=== PATIENT | male | born 1960 | race Caucasian/White ===

== ENCOUNTER 2016-09-16 10:20 | Emergency (ER) | payer OTHER ==
--- NOTE | 2016-09-16 10:45 | ERPHSYRPT ---
- History of Present Illness Time Seen by Provider: 09/16/16 10:41 Source: patient Exam Limitations: no limitations Patient Subjective Stated Complaint: co left knee pain for 2 days after bending down, Triage Nursing Assessment: pt has swelling to left knee, no redenss, limps when tries to bear wt Physician History: This is a 56-year-old white male he arrives with complaint of pain in his left knee worse with movement and straightening the knee symptoms since yesterday. Patient states he bent over and felt pain in the left knee he is having swelling and pain in the left knee. Past medical history is positive for atherosclerotic coronary artery disease. Past surgical history includes coronary artery bypass. Social history positive tobacco use Method of Injury: other (bent over and felt a pop in the knee) Occurred: yesterday Quality: constant Severity of Pain-Max: moderate Severity of Pain-Current: moderate Lower Extremities Pain: knee: left Modifying Factors: Improves With: movement Associated Symptoms: popping sensation, other (pain with movement left knee) Allergies/Adverse Reactions: No Known Drug Allergies Allergy (Unverified 09/16/16 10:31) Home Medications: Aspirin EC 325 mg [Ecotrin 325 MG] 325 mg DAILY 09/16/16 [History] Clopidogrel Bisulfate 75 mg [PLAVIX 75 MG Tablet] 75 mg DAILY 09/16/16 [ History] Simvastatin 40 mg [Zocor 40 mg] 40 mg DAILY 09/16/16 [History] Hx Influenza Vaccination/Date Given: No Hx Pneumococcal Vaccination/Date Given: No Immunizations Up to Date: Yes - Review of Systems Constitutional: No Fever, No Chills Eyes: No Symptoms Ears, Nose, & Throat: No Symptoms Respiratory: No Cough, No Dyspnea Cardiac: No Chest Pain, No Edema, No Syncope Abdominal/Gastrointestinal: No Abdominal Pain, No Nausea, No Vomiting, No Diarrhea Genitourinary Symptoms: No Dysuria Musculoskeletal: Other (pain left knee) Skin: No Rash Neurological: No Dizziness, No Focal Weakness, No Sensory Changes Psychological: No Symptoms Endocrine: No Symptoms All Other Systems: Reviewed and Negative - Past Medical History Pertinent Past Medical History: Yes Cardiac History: Coronary Artery Disease, High Cholesterol, Hypertension - Past Surgical History Past Surgical History: Yes Cardiac: CABG Other Surgical History: 2013n bypass - Social History Smoking Status: Current every day smoker Exposure to second hand smoke: Yes Drug Use: none Patient Lives Alone: No - Nursing Vital Signs Nursing Vital Signs: Initial Vital Signs Temperature 97.4 F Temperature Source Oral Pulse Rate 77 Respiratory Rate 16 Blood Pressure 152/102 Pain Intensity 9 - Physical Exam General Appearance: mild distress Eyes, Ears, Nose, Throat Exam: moist mucous membranes Neck Exam: non-tender, supple Cardiovascular/Respiratory Exam: chest non-tender, normal breath sounds, regular rate/rhythm, no respiratory distress Gastrointestinal/Abdominal Exam: non-tender, guarding Back Exam: normal inspection, No vertebral tenderness Hips Exam: bilateral: non-tender, normal inspection, normal range of motion, no evidence of injury Legs Exam: bilateral leg: non-tender, normal inspection, normal range of motion , no evidence of injury Knees Exam: right knee: non-tender, normal inspection, normal range of motion, no evidence of injury, left knee: bone tenderness (tenderness anterior left knee with palpation), other (decreased range of motion left kneesecondary to pain, mild edema left knee anteriorly) Ankle Exam: bilateral ankle: non-tender, normal inspection, normal range of motion, no evidence of injury Foot Exam: bilateral foot: non-tender, normal inspection, normal range of motion , no evidence of injury DTR - Lower Extremities Exam: ankle (R): 2+, ankle (L): 2+ Neuro/Tendon Exam: normal sensation (Stent.), normal motor functions Mental Status Exam: alert, oriented x 3, cooperative Skin Exam: normal color, warm, dry SpO2 Interpretation: normal (96%) SpO2: 96 Oxygen Delivery: Room Air - Course Nursing assessment & vital signs reviewed: Yes - Radiology Exams Left Knee X-ray Interpretation: Discussed w/ radiologist, No Fracture, No Subluxation, Other (x-ray left knee: Small nonspecific suprapatellar effusion, faint vascular calcification, multiple medial vascular clips. Patellofemoral articulation symmetric. No other bony, articular, or soft tissue abnormalities. ) Ordered Tests: Active Orders 24 hr Category Date Time Status Benigno Bandage Application -[facility] STAT Care 09/16/16 11:13 Active Immobilizer STAT Care 09/16/16 11:13 Active KNEE (MIN 4 VIEW) Stat Exams 09/16/16 10:40 Completed - Progress Progress: improved Progress Note: 09/16/16 11:17 This is a 56-year-old white male with pain in his left knee since yesterday he states he felt a pop when bending over he has pain anterior to the knee has mild edema anterior knee. X-ray shows a small effusion superior to the patella no obvious bony injuries are noted. Will have nurse place Benigno wrap and a left knee immobilizer. Will write for [place]. Patient is ice and elevate his left knee he is to follow-up with Dr. Fraga his family doctor. He is return for acute distress or for severe symptoms. - Departure Time of Disposition: 11:14 Departure Disposition: Home Clinical Impression: Effusion, left knee Left knee sprain Qualifiers: Encounter type: initial encounter Involved ligament of knee: unspecified ligament Qualified Code(s): S83.92XA - Sprain of unspecified site of left knee, initial encounter Condition: Fair Critical Care Time: No Referrals: VICTORINO FRAGA MD [Primary Care Provider] - Instructions: Knee Sprain Additional Instructions: Return home. Ice and elevate left knee 24-48 hours. Use immobilizer 48-72 hours longer if pain persists. Follow-up with your family doctor. [place] 5/325 #12 one orally every 4-6 hours as needed for pain. Return for acute distress or for severe symptoms. Prescriptions: Hydrocodone Bit/Acetaminophen [[place] 5/325Mg] 1 tab PO Q4-6HPRN PRN #12 tablet PRN Reason: Pain
--- NOTE | 2016-09-16 11:10 | XRAY ---
Indication: Patellar pain following bending knee. Comparison: None 4 views of the left knee demonstrates small nonspecific suprapatellar effusion, faint vascular calcifications, and multiple medial vascular clips. Patellofemoral articulation symmetric. No other bony, articular, or soft tissue abnormalities.
[2016-09-16 11:32] VITALS: BP 106/62; PULSE 76; O2SAT 95
== END 2016-09-16 11:30 | disposition home or self-care (01) ==
LOC: ED 10:20
DX: S83.92XA Sprain of unspecified site of left knee, initial encounter (principal); M25.462 Effusion, left knee; X50.0XXA Overexertion from strenuous movement or load, initial encounter
CPT/HCPCS: 73564; 99283; L1830

== ENCOUNTER 2018-04-06 01:52 | Emergency (ER) | payer OTHER ==
[2018-04-06] MEDS ORDERED: MORPHINE SULFATE 2 MG INJ ONE (02:13)
--- NOTE | 2018-04-06 02:14 | ERPHSYRPT ---
- History of Present Illness Time Seen by Provider: 04/06/18 02:05 Historian: patient, family Exam Limitations: no limitations Patient Subjective Stated Complaint: chest pain Triage Nursing Assessment: Pt c/o of pain in the left chest that radiates to his left shoulder and down his left arm, and back, hx of [place], rates pain 10/10, BP 172/109, c/o of SOB, pulses normal, appears to be uncomfortable Physician History: 57 y/o white male with sig cardiovascular dz including 3 MIs, 5 to 6 cardiac vessel stents placed by Dr. Howard of [place] and most recently a 2 vessel cabg [address] Bowen Dean of [place], presents with chest pain that is left side with radiation into back and left upper ext. pt states similar to other MIs in past. pt did not take any asa or ntg. pt continues to smoke cigarettes Timing/Duration: hour(s) (one) Activities at Onset: none Quality: aching, pressure Location: other (left chest) Chest Pain Radiation: arm (left), back Severity of Pain-Max: moderate Severity of Pain-Current: moderate Modifying Factors: Improves With: nitroglycerin, aspirin (improving) Associated Symptoms: denies symptoms, No nausea, No vomiting, No heartburn, No abdominal pain, No shortness of breath, No hurts to breathe, No diaphoresis Prior Chest Pain/Cardiac Workup: cardiac cath, heart attack Nitro Today/Relief: no nitro taken today, 0.4 mg x 2, provided by ED, mild relief Aspirin Treatment Today: 325 mg x 1, provided by ED Allergies/Adverse Reactions: No Known Drug Allergies Allergy (Verified 04/06/18 02:02) Home Medications: Aspirin EC 325 mg [Ecotrin 325 MG] 325 mg PO DAILY 09/16/16 [History] Clopidogrel Bisulfate 75 mg [PLAVIX 75 MG Tablet] 75 mg PO DAILY 09/16/16 [History] Simvastatin 40 mg [Zocor 40 mg] 40 mg PO DAILY 09/16/16 [History] Hx Influenza Vaccination/Date Given: No Hx Pneumococcal Vaccination/Date Given: No - Review of Systems Constitutional: No Symptoms, No Fever, No Chills Eyes: No Symptoms, No Discharge, No Eye Pain Ears, Nose, & Throat: No Symptoms, No Ear Pain Respiratory: No Symptoms, No Cough, No Dyspnea on Exertion (TUCKER), No Stridor, No Wheezing Cardiac: Chest Pain, No Palpitations, No Syncope Abdominal/Gastrointestinal: No Symptoms, No Abdominal Pain, No Nausea, No Vomiting, No Diarrhea Genitourinary Symptoms: No Symptoms, No Dysuria, No Frequency, No Hematuria Musculoskeletal: No Symptoms Skin: No Symptoms Neurological: No Symptoms, No Dizziness, No Headache Psychological: No Symptoms, No Alcohol Abuse, No Drug Abuse, No Anxiety Endocrine: No Symptoms - Past Medical History Pertinent Past Medical History: Yes Neurological History: No Pertinent History ENT History: No Pertinent History Cardiac History: Coronary Artery Disease, High Cholesterol, Hypertension, Myocardial Infarction ([place]) Respiratory History: No Pertinent History Endocrine Medical History: Diabetes Type II Musculoskeletal History: No Pertinent History GI Medical History: No Pertinent History History: No Pertinent History Psycho-Social History: No Pertinent History Male Reproductive Disorders: No Pertinent History - Past Surgical History Past Surgical History: Yes Neuro Surgical History: No Pertinent History Cardiac: CABG, Cardiac Catheterization, Cardiac Stent Respiratory: No Pertinent History Gastrointestinal: No Pertinent History Genitourinary: No Pertinent History Musculoskeletal: No Pertinent History Other Surgical History: 2013n bypass - Social History Smoking Status: Current every day smoker How long have you smoked: 42 years Exposure to second hand smoke: Yes Drug Use: none Patient Lives Alone: No - Nursing Vital Signs Nursing Vital Signs: Initial Vital Signs Pulse Rate 80 04/06/18 01:54 Blood Pressure 172/109 04/06/18 01:54 O2 Sat by Pulse Oximetry 96 04/06/18 01:54 Pain Scale Pain Intensity 0 - Physical Exam General Appearance: mild distress, alert, anxiety Eye Exam: PERRL/EOMI, eyes nml inspection Ears, Nose, Throat Exam: normal ENT inspection Neck Exam: normal inspection, non-tender, supple, full range of motion Respiratory Exam: normal breath sounds, chest tenderness, lungs clear, airway intact, No respiratory distress, No diminished breath sounds, No accessory muscle use, No wheezing, No stridor Cardiovascular Exam: regular rate/rhythm, normal heart sounds, normal peripheral pulses Gastrointestinal/Abdomen Exam: soft, normal bowel sounds, No tenderness, No distention, No mass, No guarding Rectal Exam: not done Back Exam: normal inspection, normal range of motion, No CVA tenderness, No vertebral tenderness Extremity Exam: normal inspection, normal range of motion, pelvis stable Neurologic Exam: alert, oriented x 3, cooperative, anatomic pathology manager II-XII nml as tested, normal mood/affect, nml cerebellar function, nml station & gait, sensation nml Skin Exam: normal color, warm, dry Lymphatic Exam: No adenopathy SpO2 Interpretation: normal SpO2: 96 Oxygen Delivery: Room Air - Course Nursing assessment & vital signs reviewed: Yes EKG Interpreted by Me: RATE (80), Sinus Rhythm, NORMAL INTERVALS, NORMAL QRS, Non-specific ST Changes Ordered Tests: Active Orders 24 hr Category Date Time Status Clinical Recruiter STAT Care 04/06/18 02:15 Active EKG-ER Only STAT Care 04/06/18 02:14 Active IV Insertion STAT Care 04/06/18 02:14 Active Oxygen-ED Only NASAL CANNULA 2 lpm Care 04/06/18 02:14 Active Pulse Oximetry (ED) STAT Care 04/06/18 02:14 Active Re-Check Vital Signs STAT Care 04/06/18 02:14 Active CHEST 1 VIEW (PORTABLE) Stat Exams 04/06/18 02:15 Taken CBC W DIFF Stat Lab 04/06/18 02:15 Completed CMP Stat Lab 04/06/18 02:15 Completed Manual Differential NC Stat Lab 04/06/18 02:15 Completed NT PRO BNP Stat Lab 04/06/18 02:15 Completed PROTIME WITH INR Stat Lab 04/06/18 02:15 Received TROPONIN Q3H Lab 04/06/18 02:15 Received TROPONIN Q3H Lab 04/06/18 05:15 Ordered TROPONIN Q3H Lab 04/06/18 08:15 Ordered TROPONIN Q3H Lab 04/06/18 11:15 Ordered TROPONIN Q3H Lab 04/06/18 14:15 Ordered Medication Summary Generic Name Dose Route Start Last Admin Trade Name Freq PRN Reason Stop Dose Admin Enoxaparin Sodium 100 mg 04/06/18 03:17 Enoxaparin Sodium SQ 04/06/18 03:18 STAT STA Sodium Chloride 1,000 mls @ 50 mls/hr 04/06/18 02:15 04/06/18 02:29 Sodium Chloride 0.9% 1000 Ml IV 05/06/18 02:14 50 mls/hr .Q20H VERONICA Administration Discontinued Medications Generic Name Dose Route Start Last Admin Trade Name Freq PRN Reason Stop Dose Admin Aspirin 324 mg 04/06/18 02:14 04/06/18 02:25 Baby Aspirin 81 Mg Chew PO 04/06/18 02:15 324 mg STAT ONE Administration Morphine Sulfate Confirm 04/06/18 02:13 Morphine Sulfate 2 Mg Inj Administered 04/06/18 02:14 Dose 2 mg .ROUTE .STK-MED ONE Morphine Sulfate 2 mg 04/06/18 02:14 04/06/18 02:25 Morphine Sulfate 2 Mg Inj IV 04/06/18 02:15 2 mg STAT ONE Administration Nitroglycerin 0.4 mg 04/06/18 02:26 04/06/18 02:30 Nitrostat 0.4 Mg (Ed) SL 04/06/18 02:27 0.4 mg STAT ONE Administration Nitroglycerin 0.4 mg 04/06/18 02:27 04/06/18 02:30 Nitrostat 0.4 Mg (Ed) SL 04/06/18 02:28 0.4 mg STAT ONE Administration Lab/Rad Data: Laboratory Result Diagrams 04/06/18 02:15 04/06/18 02:15 Laboratory Results 04/06/18 04/06/18 Range/Units 02:15 02:15 WBC 9.0 (4.0-10.5) K/mm3 RBC 4.87 (4.1-5.6) M/mm3 Hgb 14.6 (12.5-18.0) gm/dl Hct 43.2 (42-50) % MCV 88.7 (78-100) fl MCH 30.0 (26-32) pg MCHC 33.8 (32-36) g/dl RDW 13.9 (11.5-14.0) % Plt Count 327 (150-450) K/mm3 MPV 9.9 H (6-9.5) fl Absolute Granulocytes 5.47 (1.4-6.9) Sodium 141 (137-145) mmol/L Potassium 4.0 (3.5-5.1) mmol/L Chloride 105 (98-107) mmol/L Carbon Dioxide 22 (22-30) mmol/L Anion Gap 17.2 H (5-15) MEQ/L BUN 17 (9-20) mg/dL Creatinine 0.88 (0.66-1.25) mg/dL Estimated GFR > 60.0 ML/MIN Glucose 152 H (74-106) mg/dL Calcium 9.5 (8.4-10.2) mg/dL Total Bilirubin 0.20 (0.2-1.3) mg/dL AST 20 (17-59) U/L ALT 22 (0-50) U/L Alkaline Phosphatase 65 (38-126) U/L NT-Pro-B Natriuret Pep 169 (0-900) pg/mL Serum Total Protein 7.7 (6.3-8.2) g/dL Albumin 4.4 (3.5-5.0) g/dL - Progress Progress: improved, re-examined Air Movement: good Progress Note: 04/06/18 03:19 0305 pt stated chest pain resolved. pressure remains but improved. [address] 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 anna howard. hx, condition, labs, ekg and xray results discussed with him. he accepts pt for transfer to [facility]. he wants pt to receive only a single dose of lovenox. 0320 reviewed labs, ekg and xray findings with pt. discussed with pt and sig other plan of tranfer to [facility]. they agree with plan. Blood Culture(s) Obtained: No Antibiotics given: No Discussed with Dr.: Other (Zully-toll collector supervisor) Will see patient in: hospital (full admit) Counseled pt/family regarding: lab results, diagnosis, need for follow-up, rad results - Departure Time of Disposition: 03:24 Departure Disposition: Transfer Clinical Impression: Non-ST elevated myocardial infarction (non-STEMI) Condition: Stable Critical Care Time: Yes Critical Care Time(excluding separately billable procedures): 30-74 minutes Referrals: VICTORINO FRAGA MD [Primary Care Provider] -
[2018-04-06] MEDS: MORPHINE SULFATE 2 MG INJ IV ONE (02:25)
[2018-04-06] MEDS: BABY ASPIRIN 81 MG CHEW PO ONE (02:25)
[2018-04-06] MEDS ORDERED: Sodium Chloride 0.9% 1000 ML 1,000 ML ONE (02:26)
[2018-04-06] MEDS: Sodium Chloride 0.9% 1000 ML 1,000 ML IV SCH (02:29)
[2018-04-06] MEDS: Nitrostat 0.4 MG (ED) SL ONE ×2 (02:30)
[2018-04-06 02:48] LABS: Granulocyte Absolute (ANC) 5.47 (1.4-6.9); Hematocrit 43.2 % (42-50); Hemoglobin 14.6 gm/dl (12.5-18.0); Mean Cell Volume 88.7 fl (78-100); Mean Corpuscular Hgb Concent. 33.8 g/dl (32-36); Mean Platelet Volume 9.9 fl (6-9.5); Platelet Count 327 K/mm3 (150-450); Red Blood Count 4.87 M/mm3 (4.1-5.6); Red Cell Distribution Width 13.9 % (11.5-14.0)
[2018-04-06 02:56] LABS: ALBUMIN 4.4 g/dL (3.5-5.0); ALKALINE PHOSPHATASE 65 U/L (38-126); ANION GAP 17.2 MEQ/L (5-15); BLOOD UREA NITROGEN 17 mg/dL (9-20); CHLORIDE 105 mmol/L (98-107); Calcium 9.5 mg/dL (8.4-10.2); Carbon Dioxide 22 mmol/L (22-30); Creatinine 1 0.88 mg/dL (0.66-1.25); Glucose 152 mg/dL (74-106); NT PRO BNP 169 pg/mL (0-900); SGOT/AST 20 U/L (17-59); SGPT/ALT 22 U/L (0-50); SODIUM 141 mmol/L (137-145); Total Protein 7.7 g/dL (6.3-8.2)
[2018-04-06] MEDS ORDERED: ENOXAPARIN SODIUM SQ ONE (03:18)
[2018-04-06 03:20] VITALS: PULSE 78
[2018-04-06] MEDS: ENOXAPARIN SODIUM SQ STA (03:21)
[2018-04-06 04:13] LABS: INR 0.92 (0.8-3.0)
[2018-04-06 04:29] VITALS: BP 114/74; O2SAT 98
[2018-04-06 04:41] LABS: ATYPICAL LYMPHS 2 %; Eosinophil 8 % (0.00-3.0); Lymphocytes 28 % (24-44); Monocyte 6 % (0.0-12.0); Neutrophils 56 % (36.-66.); Total Cells Counted 100
[2018-04-06 04:42] LABS: Platelet Estimate NORMAL (NORMAL)
[2018-04-06] MEDS ORDERED: Nitrostat 0.4 MG (ED) SL ONE (05:55)
[2018-04-06] MEDS ORDERED: BABY ASPIRIN 81 MG CHEW ONE (05:55)
--- NOTE | 2018-04-06 08:55 | XRAY ---
Indication: Chest pain. Comparison: August 06, 2011. Portable apical lordotic chest less inflated without focal infiltrate, consolidation, or large effusion. Heart and mediastinal structures within normal limits. Bony thorax intact with new sternotomy wires. Impression: Nonacute chest.
== END 2018-04-06 04:27 | disposition short-term general hospital (02) ==
LOC: ED 01:52
DX: I21.4 Non-ST elevation (NSTEMI) myocardial infarction (principal); I25.2 Old myocardial infarction; Z95.1 Presence of aortocoronary bypass graft; Z79.82 Long term (current) use of aspirin; Z79.899 Other long term (current) drug therapy
CPT/HCPCS: 36000; 36415; 71045; 80053; 83880; 84484; 85025; 85610; 93005; 93041; 96360; 96361; 96372; 96374; 99285; J1650; J2270; A9270-GY

== ENCOUNTER 2020-08-27 21:24 | Emergency (ER) | payer OTHER ==
--- NOTE | 2020-08-27 21:33 | ERPHSYRPT ---
- History of Present Illness Time Seen by Provider: 08/27/20 21:31 Historian: patient Exam Limitations: no limitations Patient Subjective Stated Complaint: BP up, causing chest pressure. Physician History: His blood pressure has been elevated for a few days, causing some chest pressure. He is compliant with his medication. He has not had this problem for a while. He does have a hx of CAD. He did have a cardiac cath and stent placed about 2 years ago. He sees Dr. Murcia in [place]. Timing/Duration: yesterday Activities at Onset: none Quality: dullness, pressure Location: central Chest Pain Radiation: no radiation Severity of Pain-Max: mild Severity of Pain-Current: mild Modifying Factors: Improves With: exertion Associated Symptoms: denies symptoms Prior Chest Pain/Cardiac Workup: angina, cardiac cath, heart attack ("small one") Nitro Today/Relief: no nitro taken today (His nitro is 2 years old and he did not want to try it.) Aspirin Treatment Today: 325 mg x 1 Allergies/Adverse Reactions: No Known Drug Allergies Allergy (Verified 04/06/18 02:02) Home Medications: Aspirin EC 325 mg [Ecotrin 325 MG] 325 mg PO DAILY 09/16/16 [History] Clopidogrel Bisulfate 75 mg [PLAVIX 75 MG Tablet] 75 mg PO DAILY 09/16/16 [History] Cyclobenzaprine HCl 10 mg [Cyclobenzaprine 10 MG] 10 mg PO BID 08/27/20 [History] Nabumetone [Relafen] 500 mg PO BID 08/27/20 [History] Nebivolol HCl [Bystolic] 10 mg PO DAILY 08/27/20 [History] Umeclidinium Brm/Vilanterol Tr [Anoro Ellipta 62.5-25 Mcg INH] 1 each IH DAILY 08/27/20 [History] Hx Influenza Vaccination/Date Given: No Hx Pneumococcal Vaccination/Date Given: No Travel Risk - International Travel Have you traveled outside of the country in past 3 weeks: No - Coronavirus Screening Are you exhibiting any of the following symptoms?: No Close contact with a COVID-19 positive Pt in past 14-21 Days: No - Review of Systems Constitutional: No Symptoms Eyes: No Symptoms Ears, Nose, & Throat: No Symptoms Respiratory: No Symptoms Cardiac: Chest Pain Abdominal/Gastrointestinal: No Symptoms, Appetite Changes Musculoskeletal: No Symptoms Skin: No Symptoms Neurological: No Symptoms Psychological: No Symptoms Endocrine: No Symptoms Hematologic/Lymphatic: No Symptoms Immunological/Allergic: No Symptoms All Other Systems: Reviewed and Negative - Past Medical History Pertinent Past Medical History: Yes Neurological History: No Pertinent History ENT History: No Pertinent History Cardiac History: Coronary Artery Disease, High Cholesterol, Hypertension, Myocardial Infarction ([place]) Respiratory History: No Pertinent History Endocrine Medical History: Diabetes Type II Musculoskeletal History: No Pertinent History GI Medical History: No Pertinent History History: No Pertinent History Psycho-Social History: No Pertinent History Male Reproductive Disorders: No Pertinent History - Past Surgical History Past Surgical History: Yes Neuro Surgical History: No Pertinent History Cardiac: CABG, Cardiac Catheterization, Cardiac Stent Respiratory: No Pertinent History Gastrointestinal: No Pertinent History Genitourinary: No Pertinent History Musculoskeletal: No Pertinent History Other Surgical History: 2013n bypass - Social History Smoking Status: Current every day smoker How long have you smoked: 42 years Exposure to second hand smoke: Yes Drug Use: none Patient Lives Alone: No - Nursing Vital Signs Nursing Vital Signs: Initial Vital Signs Temperature 98 F 08/27/20 21:26 Pulse Rate 80 08/27/20 21:26 Respiratory Rate 24 08/27/20 21:26 Blood Pressure 187/103 08/27/20 21:26 O2 Sat by Pulse Oximetry 97 08/27/20 21:26 Pain Scale Pain Intensity 2 - Physical Exam General Appearance: no apparent distress Eye Exam: PERRL/EOMI, eyes nml inspection Ears, Nose, Throat Exam: normal ENT inspection Neck Exam: normal inspection, non-tender Respiratory Exam: normal breath sounds Cardiovascular Exam: regular rate/rhythm, normal heart sounds Gastrointestinal/Abdomen Exam: soft, normal bowel sounds Rectal Exam: deferred Back Exam: normal inspection Extremity Exam: normal inspection, normal range of motion Neurologic Exam: alert, oriented x 3, cooperative Skin Exam: normal color, warm, dry Lymphatic Exam: No adenopathy SpO2 Interpretation: normal SpO2: 96 O2 Delivery: Room Air - Course Nursing assessment & vital signs reviewed: Yes EKG Interpreted by Me: RATE (85), Sinus Rhythm, NORMAL AXIS, NORMAL INTERVALS, NORMAL QRS, Left Bundle Branch Block - Radiology Exams Chest X-ray Interpretation: Interpreted by me, Negative Ordered Tests: Active Orders 24 hr Category Date Time Status CHEST 1 VIEW (PORTABLE) Stat Exams 08/27/20 21:43 Taken CBC W DIFF Stat Lab 08/27/20 21:58 Completed CMP Stat Lab 08/27/20 21:58 Completed TROPONIN Q3H Lab 08/27/20 21:58 Completed Medication Summary Discontinued Medications Generic Name Dose Route Start Last Admin Trade Name Nileshq PRN Reason Stop Dose Admin Nitroglycerin 0.4 mg 08/27/20 21:39 08/27/20 21:44 Nitrostat 0.4 Mg (Ed) SL 08/27/20 21:40 0.4 mg STAT ONE Administration Nitroglycerin Confirm 08/27/20 21:44 Nitrostat 0.4 Mg (Ed) Administered 08/27/20 21:45 Dose 0.4 mg SL .STK-MED ONE Troponin very slightly elevated. Work-up otherwise unremarkable. Lab/Rad Data: Laboratory Result Diagrams 08/27/20 21:58 08/27/20 21:58 Laboratory Results 08/27/20 08/27/20 08/27/20 Range/Units 21:58 21:58 21:58 WBC 10.5 (4.0-10.5) K/mm3 RBC 4.84 (4.1-5.6) M/mm3 Hgb 14.7 (12.5-18.0) gm/dl Hct 44.6 (42-50) % MCV 92.1 (78-100) fl MCH 30.4 (26-32) pg MCHC 33.0 (32-36) g/dl RDW 13.2 (11.5-14.0) % Plt Count 317 (150-450) K/mm3 MPV 9.9 (7.5-11.0) fl Gran % 63.5 (36.0-66.0) % Eos # (Auto) 0.29 (0-0.5) Absolute Lymphs (auto) 2.60 (1.0-4.6) Absolute Monos (auto) 0.89 (0.0-1.3) Lymphocytes % 24.8 (24.0-44.0) % Monocytes % 8.5 (0.0-12.0) % Eosinophils % 2.8 (0.00-5.0) % Basophils % 0.4 (0.0-0.4) % Absolute Granulocytes 6.66 (1.4-6.9) Basophils # 0.04 (0-0.4) Sodium 138 (137-145) mmol/L Potassium 5.1 (3.5-5.1) mmol/L Chloride 106 (98-107) mmol/L Carbon Dioxide 24 (22-30) mmol/L Anion Gap 13.0 (5-15) MEQ/L BUN 21 H (9-20) mg/dL Creatinine 1.10 (0.66-1.25) mg/dL Estimated GFR > 60.0 ML/MIN Glucose 156 H (74-106) mg/dL Calcium 9.4 (8.4-10.2) mg/dL Total Bilirubin 0.70 (0.2-1.3) mg/dL AST 41 (17-59) U/L ALT 34 (0-50) U/L Alkaline Phosphatase 62 (38-126) U/L Troponin I 0.050 H* (0.000-0.034) ng/mL Serum Total Protein 8.5 H (6.3-8.2) g/dL Albumin 4.5 (3.5-5.0) g/dL - Progress Progress: improved Air Movement: good Progress Note: 08/27/20 23:59 One NTG SL resolved the chest pain and normalized the blood pressure. He likely had a mild cardiac strain from the HTN and a slight troponin leak. However, I still recommended that he be admitted for serial troponins, or contact his Dr. Murcia. He does not want to be admitted, nor for us to try and contact Dr. Murcia. He is worried about his BP going back up, so I Rx catapres tablets to be taken only if BP spikes. This is a temporary measure until he can see PCP or Dr. Murcia. He also requests a new Rx of NTG. Blood Culture(s) Obtained: No Antibiotics given: No Counseled pt/family regarding: lab results, diagnosis, need for follow-up, rad results - Departure Clinical Impression: Chest pain due to CAD Hypertension Qualifiers: Hypertension type: essential hypertension Qualified Code(s): I10 - Essential (primary) hypertension Condition: Stable Critical Care Time: No Referrals: VICTORINO FRAGA MD [Primary Care Provider] - Instructions: Angina (DC), Medicines for High Blood Pressure Additional Instructions: The high blood pressure can cause chest pressure and strain your heart. There is a Rx of a blood pressure pill to take if your blood pressure at home is not controlled with your normal medicine. There is also a Rx of a new bottle of NTG written. Your troponin level was slightly elevated and you declined being admitted to the hospital. There is a risk of a worsening heart condition evolving such as a heart attack. Call Dr. Murcia tomorrow to ask about a follow- up appointment with him. Prescriptions: Clonidine HCl 0.1 mg [Catapres 0.1 MG] 0.1 mg PO UD PRN #20 tablet PRN Reason: Elevated Blood Pressure Nitroglycerin 0.4 mg SL UD PRN 30 Days #25 tab.subl PRN Reason: Chest Pain
[2020-08-27] MEDS ORDERED: Nitrostat 0.4 MG (ED) SL ONE ×2 (21:39→21:44)
[2020-08-27 22:03] LABS: Absolute Neutrophil Ct (ANC) 6.66 (1.4-6.9); BASOPHIL % 0.4 % (0.0-0.4); Basophil (Absolute #) 0.04 (0-0.4); Eosinophil % 2.8 % (0.00-5.0); Eosinophil (Absolute #) 0.29 (0-0.5); Hematocrit 44.6 % (42-50); Hemoglobin 14.7 gm/dl (12.5-18.0); Lymphocytes % 24.8 % (24.0-44.0); Mean Cell Volume 92.1 fl (78-100); Mean Corpuscular Hemoglobin 30.4 pg (26-32); Mean Platelet Volume 9.9 fl (7.5-11.0); Monocyte (Absolute #) 0.89 (0.0-1.3); Monocytes % 8.5 % (0.0-12.0); Neutrophil % 63.5 % (36.0-66.0); Platelet Count 317 K/mm3 (150-450); Red Blood Count 4.84 M/mm3 (4.1-5.6); Red Cell Distribution Width 13.2 % (11.5-14.0); White Blood Count 10.5 K/mm3 (4.0-10.5)
[2020-08-27 22:13] LABS: ALBUMIN 4.5 g/dL (3.5-5.0); ALKALINE PHOSPHATASE 62 U/L (38-126); BLOOD UREA NITROGEN 21 mg/dL (9-20); CHLORIDE 106 mmol/L (98-107); Calcium 9.4 mg/dL (8.4-10.2); Carbon Dioxide 24 mmol/L (22-30); EST GLOMERULAR FILTRATION RATE > 60.0 ML/MIN; Glucose 156 mg/dL (74-106); Potassium 5.1 mmol/L (3.5-5.1); SGOT/AST 41 U/L (17-59); SGPT/ALT 34 U/L (0-50); SODIUM 138 mmol/L (137-145); Total Protein 8.5 g/dL (6.3-8.2)
[2020-08-27 23:01] VITALS: BP 131/83; PULSE 81
[2020-08-27 23:55] VITALS: O2SAT 96
--- NOTE | 2020-08-28 08:35 | XRAY ---
Indication: Chest pain. Comparison: April 06, 2018. Portable apical lordotic chest remains clear again with right hemidiaphragm elevation. Heart is not enlarged. Bony thorax intact again with sternotomy wires. No new/acute findings.
== END 2020-08-27 23:18 | disposition home or self-care (01) ==
LOC: ED 21:24
DX: R07.89 Other chest pain (principal); I25.10 Atherosclerotic heart disease of native coronary artery without angina pectoris; I10 Essential (primary) hypertension; Z79.899 Other long term (current) drug therapy
CPT/HCPCS: 36000; 36415; 71045; 80053; 84484; 85025; 93005; 99284; A9270-GY

== ENCOUNTER 2020-08-30 06:16 | Emergency (ER) | payer OTHER ==
[2020-08-30] MEDS ORDERED: Nitrostat 0.4 MG (ED) SL ONE (06:34)
[2020-08-30] MEDS ORDERED: BABY ASPIRIN 81 MG CHEW PO ONE (06:34)
[2020-08-30 06:41] LABS: Absolute Neutrophil Ct (ANC) 7.84 (1.4-6.9); BASOPHIL % 0.3 % (0.0-0.4); Basophil (Absolute #) 0.03 (0-0.4); Eosinophil % 2.3 % (0.00-5.0); Eosinophil (Absolute #) 0.26 (0-0.5); Hematocrit 47.3 % (42-50); Hemoglobin 15.3 gm/dl (12.5-18.0); Lymphocytes % 18.8 % (24.0-44.0); Mean Cell Volume 92.6 fl (78-100); Mean Corpuscular Hemoglobin 29.9 pg (26-32); Mean Corpuscular Hgb Concent. 32.3 g/dl (32-36); Mean Platelet Volume 9.6 fl (7.5-11.0); Monocyte (Absolute #) 0.92 (0.0-1.3); Monocytes % 8.3 % (0.0-12.0); Neutrophil % 70.3 % (36.0-66.0); Platelet Count 309 K/mm3 (150-450); Red Blood Count 5.11 M/mm3 (4.1-5.6); White Blood Count 11.2 K/mm3 (4.0-10.5)
[2020-08-30] MEDS ORDERED: Heparin 25,000 units/D5W 250ML PREMIX 25,000 UNITS/250 ML BAG IV ONE (06:46)
--- NOTE | 2020-08-30 06:46 | ERPHSYRPT ---
<JOSE R SPAIN - Last Filed: 08/30/20 07:01> - History of Present Illness Time Seen by Provider: 08/30/20 06:30 Historian: patient Exam Limitations: no limitations Patient Subjective Stated Complaint: pt states he woke up with chest pain at approx 0430, describes as pressure and radiates down lt arm Triage Nursing Assessment: pt alert and oriented, answers questions approp. pt ambulatory with steady gait noted. respirations nonlabored with lungs cta. skin warm and dry. heart rate76 on monitor, sinus rhythm. radial pulses and cap refill wnl. Physician History: Patient is a 59-year-old male with a history of MN, cardiac stents, current smoker presents to our ED with complaints of chest pain. Patient was in our ED on August 27, 3 days ago for the same. At that time he was found to have an elevated troponin. Patient was informed of the finding and decided to leave on his own accord. Patient left before work-up can be completed. Patient's current chest pain started approximately 4:30 AM. Patient's chest pain awoke him from his sleep. Patient took a nitroglycerin sublingual which improved his pain. Pain reoccurred. Patient took a second nitroglycerin which did not affect his pain. Chest pain radiates to his left arm. No associated nausea vomiting or diaphoresis. Symptoms are mild to moderate in intensity. No specific worsening or improving factors. Patient voices no other complaints or concerns at this time. Timing/Duration: today Activities at Onset: sleep Quality: aching Location: substernal Chest Pain Radiation: arm Severity of Pain-Max: moderate Severity of Pain-Current: mild Modifying Factors: Improves With: other (Nitroglycerin improved pain.) Associated Symptoms: shortness of breath, No nausea, No vomiting, No diaphoresis, No fever, No syncope Prior Chest Pain/Cardiac Workup: heart attack Nitro Today/Relief: 0.4 mg x 2 Aspirin Treatment Today: no aspirin today Allergies/Adverse Reactions: No Known Drug Allergies Allergy (Verified 08/30/20 06:30) Home Medications: Aspirin EC 325 mg [Ecotrin 325 MG] 325 mg PO DAILY 09/16/16 [History] Clopidogrel Bisulfate 75 mg [PLAVIX 75 MG Tablet] 75 mg PO DAILY 09/16/16 [History] Cyclobenzaprine HCl 10 mg [Cyclobenzaprine 10 MG] 10 mg PO BID 08/27/20 [History] Nabumetone [Relafen] 500 mg PO BID 08/27/20 [History] Nebivolol HCl [Bystolic] 10 mg PO DAILY 08/27/20 [History] Umeclidinium Brm/Vilanterol Tr [Anoro Ellipta 62.5-25 Mcg INH] 1 each IH DAILY 08/27/20 [History] Hx Tetanus, Diphtheria Vaccination/Date Given: Yes Hx Influenza Vaccination/Date Given: No Hx Pneumococcal Vaccination/Date Given: No Immunizations Up to Date: Yes Travel Risk - International Travel Have you traveled outside of the country in past 3 weeks: No - Coronavirus Screening Are you exhibiting any of the following symptoms?: No Close contact with a COVID-19 positive Pt in past 14-21 Days: No - Review of Systems Constitutional: No Symptoms, No Fever, No Chills Eyes: No Symptoms Ears, Nose, & Throat: No Symptoms Respiratory: No Symptoms, No Cough, No Dyspnea Cardiac: No Symptoms, No Chest Pain, No Edema, No Syncope Abdominal/Gastrointestinal: No Symptoms, No Abdominal Pain, No Nausea, No Vomiting, No Diarrhea Genitourinary Symptoms: No Symptoms, No Dysuria Musculoskeletal: No Symptoms, No Back Pain, No Neck Pain Skin: No Symptoms, No Rash Neurological: No Symptoms, No Dizziness, No Focal Weakness, No Sensory Changes Psychological: No Symptoms Endocrine: No Symptoms Hematologic/Lymphatic: No Symptoms Immunological/Allergic: No Symptoms All Other Systems: Reviewed and Negative - Past Medical History Pertinent Past Medical History: Yes Neurological History: No Pertinent History ENT History: No Pertinent History Cardiac History: Coronary Artery Disease, High Cholesterol, Hypertension, Myocardial Infarction (MN) Respiratory History: No Pertinent History Endocrine Medical History: Diabetes Type II Musculoskeletal History: No Pertinent History GI Medical History: No Pertinent History History: No Pertinent History Psycho-Social History: No Pertinent History Male Reproductive Disorders: No Pertinent History - Past Surgical History Past Surgical History: Yes Neuro Surgical History: No Pertinent History Cardiac: CABG, Cardiac Catheterization, Cardiac Stent Respiratory: No Pertinent History Gastrointestinal: No Pertinent History Genitourinary: No Pertinent History Musculoskeletal: No Pertinent History Other Surgical History: 2013n bypass - Social History Smoking Status: Current every day smoker How long have you smoked: 42 years Exposure to second hand smoke: Yes Drug Use: none Patient Lives Alone: No - Physical Exam General Appearance: no apparent distress, alert Eye Exam: PERRL/EOMI, eyes nml inspection Ears, Nose, Throat Exam: normal ENT inspection, moist mucous membranes Neck Exam: normal inspection, non-tender, supple, full range of motion Respiratory Exam: normal breath sounds, lungs clear, No respiratory distress Cardiovascular Exam: regular rate/rhythm, normal heart sounds Gastrointestinal/Abdomen Exam: soft, No tenderness, No mass Back Exam: normal inspection, No CVA tenderness, No vertebral tenderness Extremity Exam: normal inspection, normal range of motion, other (No pulsatile abdominal masses. Peripheral pulses are equal bilaterally at both upper and lower extremities.) Neurologic Exam: alert, oriented x 3, cooperative, normal mood/affect, sensation nml, No motor deficits Skin Exam: normal color, warm, dry SpO2 Interpretation: normal SpO2: 98 O2 Delivery: Room Air - Course Nursing assessment & vital signs reviewed: Yes EKG Interpreted by Me: RATE (75), Sinus Rhythm, NORMAL AXIS, NORMAL INTERVALS (ST Segment depression at V5 V6. Lateral leads) - CT Exams Chest CT Interpretation: Tele-radiologist Report (Clear lung sesay, sternotomy wires observed. Elevation of right hemidiaphragm. No acute findings.) - Progress Progress: improved Air Movement: good Progress Note: 08/30/20 07:04 59-year-old male history of coronary artery disease including an MN. Patient has 3 stents per patient. Patient was in our ED 3 days ago for chest pain. At that time he had an elevated troponin. Patient is here with chest pain that started at 4:30 AM. Pain radiates to left arm. In light of his recent elevated troponin cardiac risk factors cardiac stent and ongoing chest pain nitroglycerin drip and heparin drip initiated. Chest x-ray negative for acute findings. 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 We are waiting labs at this time however it is expected that patient's troponin will likely be elevated. We will transfer patient to [facility] for further evaluation and treatment. Patient endorsed to Dr. Finney who will follow up on pending studies and make final disposition. Blood Culture(s) Obtained: No Antibiotics given: No Counseled pt/family regarding: lab results, diagnosis, rad results - Departure Departure Disposition: Transfer Clinical Impression: ACS (acute coronary syndrome), EKG abnormality Condition: Stable Critical Care Time: No Referrals: VICTORINO FRAGA MD [Primary Care Provider] - <SOPHIE FINNEY - Last Filed: 08/30/20 07:48> - Nursing Vital Signs Nursing Vital Signs: Initial Vital Signs Temperature 98.2 F 08/30/20 06:16 Pulse Rate 78 08/30/20 06:16 Respiratory Rate 22 08/30/20 06:16 Blood Pressure 168/103 08/30/20 06:16 O2 Sat by Pulse Oximetry 98 08/30/20 06:16 Pain Scale Pain Intensity 6 Ordered Tests: Active Orders 24 hr Category Date Time Status Post Graduate Intern STAT Care 08/30/20 06:35 Active EKG-ER Only STAT Care 08/30/20 06:34 Active IV Insertion STAT Care 08/30/20 06:34 Active Pulse Oximetry (ED) STAT Care 08/30/20 06:34 Active CHEST 1 VIEW (PORTABLE) Stat Exams 08/30/20 06:35 Taken CBC W DIFF Stat Lab 08/30/20 06:20 Completed CMP Stat Lab 08/30/20 06:20 Completed TROPONIN Q3H Lab 08/30/20 06:20 Completed TROPONIN Q3H Lab 08/30/20 09:45 Ordered TROPONIN Q3H Lab 08/30/20 12:45 Ordered TROPONIN Q3H Lab 08/30/20 15:45 Ordered TROPONIN Q3H Lab 08/30/20 18:45 Ordered Medication Summary Generic Name Dose Route Start Last Admin Trade Name Freq PRN Reason Stop Dose Admin Nitroglycerin/Dextrose 250 mls @ 1.5 mls/hr 08/30/20 06:48 08/30/20 07:03 Ntg 0.2mg/Ml In D5w Glass IV 09/29/20 06:47 5 mcg/min .Q24H PRN 1.5 mls/hr CHEST PAIN Administration Protocol 5 MCG/MIN Sodium Chloride 1,000 mls @ 125 mls/hr 08/30/20 07:15 08/30/20 07:16 Sodium Chloride 0.9% 1000 Ml IV 09/29/20 07:14 125 mls/hr .Q8H VERONICA Administration Discontinued Medications Generic Name Dose Route Start Last Admin Trade Name Freq PRN Reason Stop Dose Admin Aspirin 324 mg 08/30/20 06:34 08/30/20 06:38 Baby Aspirin 81 Mg Chew PO 08/30/20 06:35 324 mg STAT ONE Administration Heparin Sodium (Beef Lung) Confirm 08/30/20 06:52 Heparin 5000 Units/0.5 Ml (High Risk Med) Administered 08/30/20 06:53 Dose 5,000 unit .ROUTE .STK-MED ONE Heparin Sodium/Dextrose Confirm 08/30/20 06:46 Heparin 25,000 Units/D5w 250ml Premix Administered 08/30/20 06:47 Dose 25,000 units in 250 mls @ ud IV .STK-MED ONE Nitroglycerin/Dextrose Confirm 08/30/20 06:47 Ntg 0.2mg/Ml In D5w Glass Administered 08/30/20 06:48 Dose 250 mls @ ud IV .STK-MED ONE Sodium Chloride Confirm 08/30/20 07:13 Sodium Chloride 0.9% 1000 Ml Administered 08/30/20 07:14 Dose 1,000 mls @ ud .ROUTE .STK-MED ONE Nitroglycerin 0.4 mg 08/30/20 06:34 08/30/20 06:39 Nitrostat 0.4 Mg (Ed) SL 08/30/20 06:35 0.4 mg STAT ONE Administration Lab/Rad Data: Laboratory Result Diagrams 08/30/20 06:20 08/30/20 06:20 Laboratory Results 08/30/20 08/30/20 08/30/20 Range/Units 06:20 06:20 06:20 WBC 11.2 H (4.0-10.5) K/mm3 RBC 5.11 (4.1-5.6) M/mm3 Hgb 15.3 (12.5-18.0) gm/dl Hct 47.3 (42-50) % MCV 92.6 (78-100) fl MCH 29.9 (26-32) pg MCHC 32.3 (32-36) g/dl RDW 13.0 (11.5-14.0) % Plt Count 309 (150-450) K/mm3 MPV 9.6 (7.5-11.0) fl Gran % 70.3 H (36.0-66.0) % Eos # (Auto) 0.26 (0-0.5) Absolute Lymphs (auto) 2.10 (1.0-4.6) Absolute Monos (auto) 0.92 (0.0-1.3) Lymphocytes % 18.8 L (24.0-44.0) % Monocytes % 8.3 (0.0-12.0) % Eosinophils % 2.3 (0.00-5.0) % Basophils % 0.3 (0.0-0.4) % Absolute Granulocytes 7.84 H (1.4-6.9) Basophils # 0.03 (0-0.4) Sodium 139 (137-145) mmol/L Potassium 4.4 (3.5-5.1) mmol/L Chloride 105 (98-107) mmol/L Carbon Dioxide 27 (22-30) mmol/L Anion Gap 11.1 (5-15) MEQ/L BUN 21 H (9-20) mg/dL Creatinine 1.13 (0.66-1.25) mg/dL Estimated GFR > 60.0 ML/MIN Glucose 186 H (74-106) mg/dL Calcium 9.5 (8.4-10.2) mg/dL Total Bilirubin 0.70 (0.2-1.3) mg/dL AST 27 (17-59) U/L ALT 30 (0-50) U/L Alkaline Phosphatase 64 (38-126) U/L Troponin I 0.091 H* (0.000-0.034) ng/mL Serum Total Protein 8.4 H (6.3-8.2) g/dL Albumin 4.5 (3.5-5.0) g/dL - Progress Progress Note: 08/30/20 07:46 ED critical care statement As staff physician, I have provided critical care. Time: 45 Criteria for critical illness: NSTEMI, elevated trop Treatment and management provided include: Coordination of management with ETC care team, consultants, and inpatient care team. [id number] assessment of condition and response to therapy. Review and interpretation of emergent diagnostic testing. Medical chart review and completion. Direction and immediate supervision of the following therapy: Critical care was time spent personally by me on the following activities: blood draw for specimens, development of treatment plan with patient or surrogate, discussions with consultants, discussions with primary provider, interpretation of cardiac output measurements, evaluation of patient's response to treatment, examination of patient, obtaining history from patient or surrogate, ordering and performing treatments and interventions, ordering and review of laboratory studies, ordering and review of radiographic studies, pulse oximetry, re-evaluation of patient's condition and review of old charts. This time was independent of all procedures performed. Sophie Finney I discussed with [facility], Dr. Bolivar. He requested admission to step-down unit to hospital service. They will call back with hospitalist. He also requested 81 mg of liptor. Nursing aware. - Departure Critical Care Time: Yes Critical Care Time(excluding separately billable procedures): Critical 30-74 mins
[2020-08-30] MEDS ORDERED: Ntg 0.2MG/Ml in D5W GLASS*** 250 ML IV ONE (06:47)
[2020-08-30] MEDS ORDERED: Ntg 0.2MG/Ml in D5W GLASS*** 250 ML IV PRN (06:48)
[2020-08-30] MEDS ORDERED: Heparin 5000 UNITS/0.5 ML (HIGH RISK MED) ONE (06:52)
[2020-08-30 06:53] LABS: ALBUMIN 4.5 g/dL (3.5-5.0); ALKALINE PHOSPHATASE 64 U/L (38-126); ANION GAP 11.1 MEQ/L (5-15); BLOOD UREA NITROGEN 21 mg/dL (9-20); CHLORIDE 105 mmol/L (98-107); Calcium 9.5 mg/dL (8.4-10.2); Carbon Dioxide 27 mmol/L (22-30); Creatinine 1 1.13 mg/dL (0.66-1.25); EST GLOMERULAR FILTRATION RATE > 60.0 ML/MIN; Glucose 186 mg/dL (74-106); Potassium 4.4 mmol/L (3.5-5.1); SGOT/AST 27 U/L (17-59); SGPT/ALT 30 U/L (0-50); SODIUM 139 mmol/L (137-145); Total Protein 8.4 g/dL (6.3-8.2)
[2020-08-30] MEDS ORDERED: Sodium Chloride 0.9% 1000 ML 1,000 ML ONE (07:13)
[2020-08-30] MEDS ORDERED: Sodium Chloride 0.9% 1000 ML 1,000 ML IV SCH (07:15)
[2020-08-30] MEDS ORDERED: LIPITOR 40MG PO STA (07:51)
[2020-08-30] MEDS ORDERED: LIPITOR 40MG ONE (07:53)
[2020-08-30 09:03] VITALS: BP 114/68; PULSE 62; O2SAT 96
--- NOTE | 2020-08-30 09:19 | XRAY ---
Indication: Chest pain. Comparison: August 27, 2020. Portable chest again demonstrates right hemidiaphragm elevation with new minimal right base discoid atelectasis. Remaining heart and lungs unremarkable.
== END 2020-08-30 09:42 | disposition short-term general hospital (02) ==
LOC: ED 06:16
DX: I24.9 Acute ischemic heart disease, unspecified (principal); R94.31 Abnormal electrocardiogram [ECG] [EKG]; E07.89 Other specified disorders of thyroid; Z79.899 Other long term (current) drug therapy
CPT/HCPCS: 36000; 36415; 71045; 80053; 84484; 85025; 93005; 93041; 94760; 99285; 99291; J1644; A9270-GY

== ENCOUNTER 2024-08-14 19:07 | Emergency (ER) | payer SELFPAY ==
[2024-08-14 19:19] VITALS: TEMP 97.4
[2024-08-14] MEDS ORDERED: BABY ASPIRIN 81 MG CHEW ONE (19:40)
[2024-08-14] MEDS ORDERED: Nitrostat 0.4 MG (ED) SL ONE (19:40)
[2024-08-14] MEDS ORDERED: MORPHINE SULFATE 4 MG INJ ONE (19:40)
[2024-08-14] MEDS ORDERED: Sodium Chloride 0.9% 1000 ML 1,000 ML ONE (19:40)
[2024-08-14] MEDS: MORPHINE SULFATE 4 MG INJ IV ONE (19:42)
[2024-08-14] MEDS: BABY ASPIRIN 81 MG CHEW PO ONE (19:42)
[2024-08-14] MEDS: Sodium Chloride 0.9% 1000 ML 1,000 ML IV SCH (19:43)
[2024-08-14] MEDS: Nitrostat 0.4 MG (ED) SL ONE (19:43)
[2024-08-14 19:48] LABS: Absolute Neutrophil Ct (ANC) 5.51 x10^3/uL (1.78-5.38); BASOPHIL % 0.6 % (0.2-1.2); Basophil (Absolute #) 0.05 x10^3/uL (0.01-0.08); Eosinophil % 1.8 % (0.8-7.0); Eosinophil (Absolute #) 0.15 x10^3/uL (0.04-0.54); Hematocrit 42.9 % (40.1-51.0); Hemoglobin 14.2 g/dL (13.7-17.5); IMMATURE GRAN # 0.07 x10^3u/L (0.001-0.031); IMMATURE GRAN % 0.8 % (0.001-0.429); Lymphocyte (Absolute #) 1.84 x10^3/uL (1.32-3.57); Lymphocytes % 22.2 % (21.8-53.1); Mean Cell Volume 88.3 fL (79.0-92.2); Mean Corpuscular Hemoglobin 29.2 pg (25.7-32.2); Mean Corpuscular Hgb Concent. 33.1 g/dL (32.3-36.5); Mean Platelet Volume 9.3 fL (9.4-12.4); Monocyte (Absolute #) 0.67 x10^3/uL (0.30-0.82); Monocytes % 8.1 % (5.3-12.2); Neutrophil % 66.5 % (34.0-67.9); Platelet Count 316 x10^3/uL (163-337); Red Blood Count 4.86 x10^6/uL (4.63-6.08); Red Cell Distribution Width 12.6 % (11.6-14.4); White Blood Count 8.3 x10^3/uL (4.23-9.07)
--- NOTE | 2024-08-14 19:48 | ERPHSYRPT ---
- History of Present Illness Time Seen by Provider: 08/14/24 19:45 Historian: patient, family Exam Limitations: no limitations Patient Subjective Stated Complaint: Pt c/o of hypertension and some chest pressure Triage Nursing Assessment: Pt brought to the ER by his , hypertensive, rates chest pressure as 6/10, walked into the ER without assistance, pulses normal, skin n/w/d, no difficulty breathing, doesn't appear to be in any distress Physician History: This 63-year-old male with significant past medical history of hypertension started having some headache and dizziness yesterday and today he started having left-sided chest pressure. He checked his blood pressure at home and which was running high in 180s so his brought him into the emergency room. He was complaining of some twinge like chest pressure on the left side of the chest in precordial area. He denies any nausea vomiting stomach upset shortness of breath. Timing/Duration: today Quality: sharpness Location: substernal Chest Pain Radiation: no radiation Severity of Pain-Max: mild Severity of Pain-Current: mild Modifying Factors: Improves With: nothing Associated Symptoms: denies symptoms Prior Chest Pain/Cardiac Workup: no prior chest pain Nitro Today/Relief: no nitro taken today Aspirin Treatment Today: no aspirin today Body Map: 1 - area of chest pain Allergies/Adverse Reactions: No Known Drug Allergies Allergy (Verified 08/14/24 19:19) Home Medications: Aspirin EC 325 mg [Ecotrin 325 MG] 81 mg PO DAILY 09/16/16 [History] Clopidogrel Bisulfate [PLAVIX 75 MG Tablet] 75 mg PO DAILY 09/16/16 [History] Nebivolol HCl [Bystolic] 10 mg PO DAILY 08/27/20 [History] Atorvastatin Calcium [Lipitor] 80 mg PO DAILY 08/14/24 [History] Hx Tetanus, Diphtheria Vaccination/Date Given: Yes Hx Influenza Vaccination/Date Given: No Hx Pneumococcal Vaccination/Date Given: No Travel Risk - International Travel Have you traveled outside of the country in past 3 weeks: No - Emerging Infectious Disease Are you exhibiting symptoms associated with any current EIDs: No - Review of Systems Constitutional: No Fever, No Chills Eyes: No Symptoms Ears, Nose, & Throat: No Symptoms Respiratory: No Cough, No Dyspnea Cardiac: Chest Pain, No Edema, No Syncope Abdominal/Gastrointestinal: No Abdominal Pain, No Nausea, No Vomiting, No Diarrhea Genitourinary Symptoms: No Dysuria Musculoskeletal: No Back Pain, No Neck Pain Skin: No Rash Neurological: No Dizziness, No Focal Weakness, No Sensory Changes Psychological: No Symptoms Endocrine: No Symptoms All Other Systems: Reviewed and Negative - Past Medical History Pertinent Past Medical History: Yes Neurological History: No Pertinent History ENT History: No Pertinent History Cardiac History: Coronary Artery Disease, High Cholesterol, Hypertension, Myocardial Infarction ([place]) Respiratory History: No Pertinent History Endocrine Medical History: Diabetes Type II Musculoskeletal History: No Pertinent History GI Medical History: No Pertinent History History: No Pertinent History Psycho-Social History: No Pertinent History Male Reproductive Disorders: No Pertinent History - Past Surgical History Past Surgical History: Yes Neuro Surgical History: No Pertinent History Cardiac: CABG, Cardiac Catheterization, Cardiac Stent Respiratory: No Pertinent History Gastrointestinal: No Pertinent History Genitourinary: No Pertinent History Musculoskeletal: No Pertinent History Other Surgical History: 2013 bypass - Social History Smoking Status: Former smoker How long have you smoked: 42 years Exposure to second hand smoke: No Drug Use: none Patient Lives Alone: No - Social Determinants of Health Will the patient participate in the screening: Yes Do you worry about a steady place to live?: No Do you have any problems with any of the following?: No known problems In the past 12 months,have you had to go without utilities?: No Transportation Issues: No Has anyone in your support network made you feel unsafe?: No Have you or anyone in your house had to go without enough: No - Nursing Vital Signs Nursing Vital Signs: Initial Vital Signs Temperature 97.4 F 08/14/24 19:11 Pulse Rate 64 08/14/24 19:11 Respiratory Rate 18 08/14/24 19:11 Blood Pressure 161/98 08/14/24 19:11 O2 Sat by Pulse Oximetry 98 08/14/24 19:11 Pain Scale Pain Intensity 6 - Physical Exam General Appearance: no apparent distress, alert Eye Exam: PERRL/EOMI, eyes nml inspection Ears, Nose, Throat Exam: normal ENT inspection, moist mucous membranes Neck Exam: normal inspection, non-tender, supple, full range of motion Respiratory Exam: normal breath sounds, lungs clear, No respiratory distress Cardiovascular Exam: regular rate/rhythm, normal heart sounds Gastrointestinal/Abdomen Exam: soft, No tenderness, No mass Back Exam: normal inspection, No CVA tenderness, No vertebral tenderness Extremity Exam: normal inspection, normal range of motion Neurologic Exam: alert, oriented x 3, cooperative, normal mood/affect, sensation nml, No motor deficits Skin Exam: normal color, warm, dry SpO2: 97 - Course Nursing assessment & vital signs reviewed: Yes EKG Interpreted by Me: Sinus Rhythm Rhythm Strip: Normal Sinus Rhythm - Radiology Exams Chest X-ray Interpretation: Interpreted by me, Reviewed by me Ordered Tests: Active Orders 24 hr Category Date Time Status Ocean Import Representative STAT Care 08/14/24 19:19 Active EKG-ER Only STAT Care 08/14/24 19:18 Active IV Insertion STAT Care 08/14/24 19:18 Active CHEST 2 VIEWS (PA AND LAT) Stat Exams 08/14/24 19:19 Taken CBC W DIFF Stat Lab 08/14/24 19:40 Completed CMP Stat Lab 08/14/24 19:40 Completed NT PRO BNPII Stat Lab 08/14/24 19:40 Completed TROPONIN Stat Lab 08/14/24 19:40 Completed Medication Summary Generic Name Dose Route Start Last Admin Trade Name Freq PRN Reason Stop Dose Admin Sodium Chloride 1,000 mls @ 100 mls/hr 08/14/24 19:30 08/14/24 19:43 Sodium Chloride 0.9% 1000 Ml IV 09/13/24 19:29 100 mls/hr .Q10H VERONICA Administration Discontinued Medications Generic Name Dose Route Start Last Admin Trade Name Freq PRN Reason Stop Dose Admin Aspirin 324 mg 08/14/24 19:18 08/14/24 19:42 Aspirin 81 Mg Tab.Chew PO 08/14/24 19:19 324 mg STAT ONE Administration Aspirin Confirm 08/14/24 19:40 Aspirin 81 Mg Tab.Chew Administered 08/14/24 19:41 Dose 324 mg .ROUTE .STK-MED ONE Morphine Sulfate 4 mg 08/14/24 19:18 08/14/24 19:42 Morphine Sulfate 4 Mg/Ml Injection IV 08/14/24 19:19 4 mg STAT ONE Administration Morphine Sulfate Confirm 08/14/24 19:40 Morphine Sulfate 4 Mg/Ml Injection Administered 08/14/24 19:41 Dose 4 mg .ROUTE .STK-MED ONE Nitroglycerin 0.4 mg 08/14/24 19:18 08/14/24 19:43 Nitroglycerin 0.4 Mg (Ed) 0.4 Mg Tab.Subl SL 08/14/24 19:19 0.4 mg STAT ONE Administration Nitroglycerin Confirm 08/14/24 19:40 Nitroglycerin 0.4 Mg (Ed) 0.4 Mg Tab.Subl Administered 08/14/24 19:41 Dose 0.4 mg SL .STK-MED ONE Lab/Rad Data: Laboratory Result Diagrams 08/14/24 19:40 08/14/24 19:40 Laboratory Results 08/14/24 08/14/24 08/14/24 Range/Units 19:40 19:40 19:40 WBC 8.3 (4.23-9.07) x10^3/uL RBC 4.86 (4.63-6.08) x10^6/uL Hgb 14.2 (13.7-17.5) g/dL Hct 42.9 (40.1-51.0) % MCV 88.3 (79.0-92.2) fL MCH 29.2 (25.7-32.2) pg MCHC 33.1 (32.3-36.5) g/dL RDW 12.6 (11.6-14.4) % Plt Count 316 (163-337) x10^3/uL MPV 9.3 L (9.4-12.4) fL Gran % 66.5 (34.0-67.9) % Immature Gran % (Auto) 0.8 H (0.001-0.429) % Nucleat RBC Rel Count 0.0 (0.00-0.2) % Eos # (Auto) 0.15 (0.04-0.54) x10^3/uL Immature Gran # (Auto) 0.07 H (0.001-0.031) x10^3u/L Absolute Lymphs (auto) 1.84 (1.32-3.57) x10^3/uL Absolute Monos (auto) 0.67 (0.30-0.82) x10^3/uL Absolute Nucleated RBC 0.00 (0.00-0.012) x10^3u/L Lymphocytes % 22.2 (21.8-53.1) % Monocytes % 8.1 (5.3-12.2) % Eosinophils % 1.8 (0.8-7.0) % Basophils % 0.6 (0.2-1.2) % Absolute Granulocytes 5.51 H (1.78-5.38) x10^3/uL Basophils # 0.05 (0.01-0.08) x10^3/uL Sodium 139 (135-145) mmol/L Potassium 4.2 (3.5-5.1) mmol/L Chloride 108 H (98-107) mmol/L Carbon Dioxide 23 (22-30) mmol/L Anion Gap 12.3 (5-15) MEQ/L BUN 18 (9-20) mg/dL Creatinine 1.02 (0.66-1.25) mg/dL Estimated GFR 83.1 ML/MIN Glucose 107 H (74-106) mg/dL Calcium 9.5 (8.4-10.2) mg/dL Total Bilirubin 0.60 (0.2-1.3) mg/dL AST 33 (17-59) U/L ALT 30 (0-50) U/L Alkaline Phosphatase 63 (38-126) U/L Troponin I < 0.012 (0.000-0.033) ng/mL NT-Pro-B Natriuret Pep 241 (<300) pg/mL Serum Total Protein 8.2 (6.3-8.2) g/dL Albumin 4.7 (3.5-5.0) g/dL - Progress Progress: improved Air Movement: good Progress Note: 08/14/24 20:18 Blood pressure came back to normal 139/84. Patient has no chest pain. Rest of the emergency room course remained unremarkable. All the labs were within normal range. I will start patients on Imdur 30 mg daily in the morning. Prescription is sent. Patient is given 1 pill to take home so that he can start tomorrow morning. Patient is advised to stay on the rest of the medicines same and follow-up with primary care on Friday. Blood Culture(s) Obtained: No Antibiotics given: No Counseled pt/family regarding: lab results, diagnosis, need for follow-up, rad results Medical Desision Making - Independent Historian Additional History obtained from: Spouse - Diagnostic Testing Diagnostic test were ordered, analyzed, and reviewed by me: Yes Radiological Interpretation: Interpreted by me, Reviewed by me - Risk of complications Low Risk: Low risk of morbidity from additional dx testing or treatment - Departure Departure Disposition: Home Clinical Impression: Chest pain due to CAD Hypertension Qualifiers: Hypertension type: primary hypertension Qualified Code(s): I10 - Essential (primary) hypertension Condition: Stable Critical Care Time: No Referrals: VICTORINO FRAGA MD [Primary Care Provider] - Follow up/PCP as directed Instructions: High Blood Pressure ED, Controlling your blood pressure through lifestyle, Medicines for high blood pressure Additional Instructions: Discharge/Care Plan PRINCESS PETERSON was seen on 08/14/24 in the Emergency Room. The patient was counseled regarding Diagnosis,Lab results, Imaging studies, need for follow up and when to return to the Emergency Room. Prescriptions given: Discharge Note I have spoken with the patient and/or caregivers. I have explained the patient's condition, diagnosis and treatment plan based on the information available to me at this time. I have answered the patient's and/or caregiver's questions and addressed any concerns. The patient and/or caregivers have as good understanding of the patient's diagnosis, condition and treatment plan as can be expected at this point. The vital signs have been stable. The patient's condition is stable and appropriate for discharge from the emergency department. The patient will pursue further outpatient evaluation with the primary care physician or other designated or consulting physician as outlined in the discharge instructions. The patient and/or caregivers are agreeable to this plan of care and follow-up instructions have been explained in detail. The patient and/or caregivers have received these instruction. The patient/and or caregivers are aware that any significant change in condition or worsening of symptoms should prompt an immediate return to this or the closest emergency department or call 911. PRINCESS PETERSON was seen on 08/14/24 n the Emergency Room. At that time you were treated for an emergent condition, during your visit Laboratory, Radiology and/or other procedures may have been ordered. It is very important that you follow-up with your Primary Care Physician VICTORINO FRAGA within the next 24-48 hours to review your Emergency Room visit and the final results of testing that was ordered. Some test results such as Urine Cultures, Blood Cultures, and other cultures if ordered will not be finalized for 24-48 hours. If you do not have a Primary Care Provider please call the medical records department at [phone] ext [phone] to obtain a copy of your results or you may sign into our patient portal to obtain these results by visiting us @ [email or web address] and completing the following steps: 1. Click on the Patient Portal link 2. Click the Patient Self Enrollment Link to complete the enrollment form and entering your 3. Once the enrollment form is completed you will receive an email with a t emporary ID and password at the email address you provided. 4. Next choose a user name and password. Your user name must be at least 4 characters long and your password must be at least 4 characters long. 5. Choose a security question from the list and provide your answer to the question. If you already have signed into the Health Portal you may access your Health Care Information 24/03 by the following steps: 1. Login to our website @ [email or web address] 2. Enter your original user name and password. FAQS The [facility] Health Portal is an online tool that contains your Lab Results, Radiology Reports, Visit History, Discharge Instructions and Health Summary Lab and Radiology Results will not be available for 72 hours on the portal. The Portal is a secure site, passwords are encryted and URLs are re-written so they cannot be copied and pasted. You and authorized family members are the only ones who can access your Portal. Also there is a timeout feature that protects your information if you leave the Portal page open. If you have technical difficulty please use the Contact Us link on the page this will allow you to submit any questions you have regarding the Portal or you may contact the Medical Record Department at [phone] ext [phone]. Prescriptions: Isosorbide Mononitrate 30 mg [Imdur 30 MG] 30 mg PO DAILY 30 Days #30 tab
[2024-08-14 20:13] VITALS: BP 139/80; PULSE 64; RESP 22
[2024-08-14 20:13] LABS: ALBUMIN 4.7 g/dL (3.5-5.0); ALKALINE PHOSPHATASE 63 U/L (38-126); ANION GAP 12.3 MEQ/L (5-15); BLOOD UREA NITROGEN 18 mg/dL (9-20); CHLORIDE 108 mmol/L (98-107); Calcium 9.5 mg/dL (8.4-10.2); Carbon Dioxide 23 mmol/L (22-30); Creatinine 1 1.02 mg/dL (0.66-1.25); EST GLOMERULAR FILTRATION RATE 83.1 ML/MIN; Glucose 107 mg/dL (74-106); Potassium 4.2 mmol/L (3.5-5.1); SGOT/AST 33 U/L (17-59); SGPT/ALT 30 U/L (0-50); SODIUM 139 mmol/L (135-145); TROPONIN < 0.012 ng/mL (0.000-0.033); Total Protein 8.2 g/dL (6.3-8.2)
[2024-08-14 20:22] VITALS: O2SAT 97
--- NOTE | 2024-08-14 21:01 | XRAY ---
Indication: Chest pain. Comparison: August 30, 2020 PA/lateral chest again demonstrates chronic mild right hemidiaphragm elevation with adjacent right base discoid atelectasis. Remaining lungs clear. Heart not enlarged again with CABG. Bony thorax intact with minimal degenerative changes. Impression: Nonacute chest with chronic features.
[2024-08-15] MEDS ORDERED: Imdur 30 MG PO SCH (10:00)
== END 2024-08-14 20:29 | disposition home or self-care (01) ==
LOC: ED 19:07
DX: R07.9 Chest pain, unspecified (principal); I10 Essential (primary) hypertension; R42 Dizziness and giddiness; I25.2 Old myocardial infarction; Z95.0 Presence of cardiac pacemaker; I25.10 Atherosclerotic heart disease of native coronary artery without angina pectoris
CPT/HCPCS: 36415; 71046; 80053; 83880; 84484; 85025; 93005; 93041; 96374; 99284; 99285; J2270; A9270-GY

== ENCOUNTER 2024-08-20 12:47 | Emergency (ER) | payer SELFPAY ==
--- NOTE | 2024-08-20 13:06 | ERPHSYRPT ---
- History of Present Illness Time Seen by Provider: 08/20/24 13:02 Source: patient Exam Limitations: no limitations Physician History: Patient had symptoms that started about an hour prior to arrival. He started having some numbness and tingling in his face and left upper extremity. He did not have any slurred speech or expressive aphasia. He said that the symptoms of gotten a little bit worse. He does not really have much weakness at all in his extremity. He says he just has some generalized weakness and it was difficult to get up from a seated position. I did not appreciate much weakness on physical exam. Has never had problems like this before. He does have known vascular disease. He said he was just in his kitchen cooking some food and started getting the symptoms. It was isolated to his face neck and left upper extremity. He did not have any ataxia or incoordination or anything like that. Symptoms have been somewhat persistent for about an hour. Allergies/Adverse Reactions: No Known Drug Allergies Allergy (Verified 08/20/24 13:08) Home Medications: Clopidogrel Bisulfate [PLAVIX 75 MG Tablet] 75 mg PO DAILY 09/16/16 [History] Nebivolol HCl [Bystolic] 10 mg PO DAILY 08/27/20 [History] Atorvastatin Calcium [Lipitor] 80 mg PO DAILY 08/14/24 [History] Aspirin EC 81 mg [Ecotrin 81 mg] 81 mg PO DAILY 08/20/24 [History] Enalapril Maleate [Vasotec] 5 mg PO DAILY 08/20/24 [History] Metformin HCl 500 mg [Glucophage 500 MG] 500 mg PO DAILY 08/20/24 [History] Hx Tetanus, Diphtheria Vaccination/Date Given: Yes Hx Influenza Vaccination/Date Given: No Hx Pneumococcal Vaccination/Date Given: No Travel Risk - Emerging Infectious Disease Are you exhibiting symptoms associated with any current EIDs: No - Review of Systems Constitutional: No Symptoms Eyes: No Symptoms Ears, Nose, & Throat: No Symptoms Respiratory: No Symptoms Genitourinary Symptoms: No Symptoms Musculoskeletal: No Symptoms Skin: No Symptoms - Past Medical History Pertinent Past Medical History: Yes Neurological History: No Pertinent History ENT History: No Pertinent History Cardiac History: Coronary Artery Disease, High Cholesterol, Hypertension, Myoca rdial Infarction ([place]) Respiratory History: No Pertinent History Endocrine Medical History: Diabetes Type II Musculoskeletal History: No Pertinent History GI Medical History: No Pertinent History History: No Pertinent History Psycho-Social History: No Pertinent History Male Reproductive Disorders: No Pertinent History - Past Surgical History Past Surgical History: Yes Neuro Surgical History: No Pertinent History Cardiac: CABG, Cardiac Catheterization, Cardiac Stent Respiratory: No Pertinent History Gastrointestinal: No Pertinent History Genitourinary: No Pertinent History Musculoskeletal: No Pertinent History Other Surgical History: 2013 bypass - Social History Smoking Status: Former smoker How long have you smoked: 42 years Exposure to second hand smoke: No Drug Use: none Patient Lives Alone: No - Social Determinants of Health Will the patient participate in the screening: Yes Do you worry about a steady place to live?: No In the past 12 months,have you had to go without utilities?: No Transportation Issues: No Has anyone in your support network made you feel unsafe?: No Have you or anyone in your house had to go without enough: No - Nursing Vital Signs Nursing Vital Signs: Initial Vital Signs Temperature 97.8 F 08/20/24 12:55 Pulse Rate 64 08/20/24 12:55 Respiratory Rate 18 08/20/24 12:55 Blood Pressure 184/110 08/20/24 12:55 O2 Sat by Pulse Oximetry 97 08/20/24 12:55 Pain Scale Pain Intensity 6 - Jagdeep Coma Scale Best Eye Response (Jagdeep): (4) open spontaneously Best Verbal Response (Jagdeep): (5) oriented Best Motor Response (Jagdeep): (6) obeys commands Jagdeep Total: 15 - Physical Exam General Appearance: no apparent distress Eye Exam: bilateral eye: normal inspection, PERRL, EOMI Ears, Nose, Throat Exam: normal ENT inspection, TMs normal, pharynx normal Neck Exam: normal inspection, non-tender Respiratory: normal breath sounds, lungs clear, No respiratory distress Cardiovascular: regular rate/rhythm, normal heart sounds Mental Status: alert, oriented x 3, cooperative damage appraiser Exam: normal hearing, normal speech, PERRL, abnormal eye position Coordination/Gait: normal finger to nose, abnormal gait (Patient's gait appeared a little bit affected on the left side whenever he was walking back.) Motor/Sensory: no pronator drift, sensory deficit (Left upper extremity), No pronator drift (L) Skin Exam: normal color, warm, dry - Course Nursing assessment & vital signs reviewed: Yes EKG Interpreted by Me: RATE, Sinus Rhythm, NORMAL AXIS, NORMAL INTERVALS, NORMAL QRS, NORMAL ST-T Ordered Tests: Active Orders 24 hr Category Date Time Status Executive Communications Manager STAT Care 08/20/24 13:00 Active EKG-ER Only STAT Care 08/20/24 12:59 Active NPO (ED) STAT Care 08/20/24 12:59 Active CHEST 1 VIEW (PORTABLE) Stat Exams 08/20/24 13:[address] ANGIOGRAPHY NECK [CT] Stat Exams 08/20/24 14:36 Completed CTA HEAD W AND/OR WO CONTRAST [CT] Stat Exams 08/20/24 14:35 Completed HEAD WITHOUT CONTRAST [CT] Stat Exams 08/20/24 12:53 Completed BMP Stat Lab 08/20/24 13:38 Completed CBC W DIFF Stat Lab 08/20/24 12:59 Completed PT INR [PROTIME WITH INR] Stat Lab 08/20/24 13:38 Completed PTT Stat Lab 08/20/24 13:38 Completed TROPONIN Q4H Lab 08/20/24 13:38 Completed TROPONIN Q4H Lab 08/20/24 17:00 Ordered TROPONIN Q4H Lab 08/20/24 21:00 Ordered Medication Summary Discontinued Medications Generic Name Dose Route Start Last Admin Trade Name Freq PRN Reason Stop Dose Admin Aspirin 324 mg 08/20/24 14:27 08/20/24 14:32 Aspirin 81 Mg Tab.Chew PO 08/20/24 14:28 324 mg STAT ONE Administration Aspirin Confirm 08/20/24 14:31 Aspirin 81 Mg Tab.Chew Administered 08/20/24 14:32 Dose 324 mg .ROUTE .STK-MED ONE Clopidogrel Bisulfate 75 mg 08/20/24 14:26 08/20/24 14:32 Clopidogrel Bisulfate 75 Mg Tablet PO 08/20/24 14:27 75 mg STAT ONE Administration Clopidogrel Bisulfate Confirm 08/20/24 14:31 Clopidogrel Bisulfate 75 Mg Tablet Administered 08/20/24 14:32 Dose 75 mg .ROUTE .STK-MED ONE Lab/Rad Data: Laboratory Result Diagrams 08/20/24 12:59 08/20/24 13:38 Laboratory Results 08/20/24 08/20/24 08/20/24 Range/Units 13:38 13:38 13:38 WBC (4.23-9.07) x10^3/uL RBC (4.63-6.08) x10^6/uL Hgb (13.7-17.5) g/dL Hct (40.1-51.0) % MCV (79.0-92.2) fL MCH (25.7-32.2) pg MCHC (32.3-36.5) g/dL RDW (11.6-14.4) % Plt Count (163-337) x10^3/uL MPV (9.4-12.4) fL Gran % (34.0-67.9) % Immature Gran % (Auto) (0.001-0.429) % Nucleat RBC Rel Count (0.00-0.2) % Eos # (Auto) (0.04-0.54) x10^3/uL Immature Gran # (Auto) (0.001-0.031) x10^3u/L Absolute Lymphs (auto) (1.32-3.57) x10^3/uL Absolute Monos (auto) (0.30-0.82) x10^3/uL Absolute Nucleated RBC (0.00-0.012) x10^3u/L Lymphocytes % (21.8-53.1) % Monocytes % (5.3-12.2) % Eosinophils % (0.8-7.0) % Basophils % (0.2-1.2) % Absolute Granulocytes (1.78-5.38) x10^3/uL Basophils # (0.01-0.08) x10^3/uL PT 10.6 (9.4-12.5) SECONDS INR 0.97 (0.8-3.0) APTT 25.3 (25.1-36.5) SECONDS Sodium 138 (135-145) mmol/L Potassium 4.3 (3.5-5.1) mmol/L Chloride 107 (98-107) mmol/L Carbon Dioxide 23 (22-30) mmol/L Anion Gap 12.1 (5-15) MEQ/L BUN 16 (9-20) mg/dL Creatinine 1.19 (0.66-1.25) mg/dL Estimated GFR 69.1 ML/MIN Glucose 125 H (74-106) mg/dL Calcium 9.3 (8.4-10.2) mg/dL Troponin I < 0.012 (0.000-0.033) ng/mL 08/20/24 Range/Units 12:59 WBC 7.3 (4.23-9.07) x10^3/uL RBC 4.58 L (4.63-6.08) x10^6/uL Hgb 13.4 L (13.7-17.5) g/dL Hct 40.6 (40.1-51.0) % MCV 88.6 (79.0-92.2) fL MCH 29.3 (25.7-32.2) pg MCHC 33.0 (32.3-36.5) g/dL RDW 12.5 (11.6-14.4) % Plt Count 281 (163-337) x10^3/uL MPV 9.4 (9.4-12.4) fL Gran % 69.6 H (34.0-67.9) % Immature Gran % (Auto) 0.7 H (0.001-0.429) % Nucleat RBC Rel Count 0.0 (0.00-0.2) % Eos # (Auto) 0.15 (0.04-0.54) x10^3/uL Immature Gran # (Auto) 0.05 H (0.001-0.031) x10^3u/L Absolute Lymphs (auto) 1.46 (1.32-3.57) x10^3/uL Absolute Monos (auto) 0.54 (0.30-0.82) x10^3/uL Absolute Nucleated RBC 0.00 (0.00-0.012) x10^3u/L Lymphocytes % 19.9 L (21.8-53.1) % Monocytes % 7.4 (5.3-12.2) % Eosinophils % 2.0 (0.8-7.0) % Basophils % 0.4 (0.2-1.2) % Absolute Granulocytes 5.09 (1.78-5.38) x10^3/uL Basophils # 0.03 (0.01-0.08) x10^3/uL PT (9.4-12.5) SECONDS INR (0.8-3.0) APTT (25.1-36.5) SECONDS Sodium (135-145) mmol/L Potassium (3.5-5.1) mmol/L Chloride (98-107) mmol/L Carbon Dioxide (22-30) mmol/L Anion Gap (5-15) MEQ/L BUN (9-20) mg/dL Creatinine (0.66-1.25) mg/dL Estimated GFR ML/MIN Glucose (74-106) mg/dL Calcium (8.4-10.2) mg/dL Troponin I (0.000-0.033) ng/mL - Progress Progress: improved Progress Note: Patient was stable throughout stay. We involve teleneurology. They thought that he does not need thrombolysis. I agree with that. They do think that he should be admitted. They do recommend starting him on Plavix and aspirin. His symptoms have improved somewhat. His NIH scale on admission was about a 2 and its about a 1 now.We do not have MRI capabilities at this time so we are going to transfer the patient to [facility]. I talked to Dr. Queen In the emergency room. He excepted the patient in ER to ER transfer. Patient was stable throughout stay. His symptoms are unchanged Or slightly improved 08/20/24 14:28 08/20/24 16:32 Will see patient in: hospital (full admit) Medical Desision Making - Independent Historian Additional History obtained from: Spouse - Discussion of managment Care discussed with:: hospitalist Agreed on:: Treatment plan, decision to admit Will see patient: in hospital - Departure Departure Disposition: Transfer Clinical Impression: CVA (cerebral vascular accident) Condition: Stable Critical Care Time: No Referrals: VICTORINO FRAGA MD [Primary Care Provider] - Follow up/PCP as directed
[2024-08-20 13:09] VITALS: TEMP 97.8
--- NOTE | 2024-08-20 13:25 | XRAY ---
Indication: Left-sided numbness/dizziness. Stroke. Multiple contiguous axial images obtained through the head without contrast. Comparison: None Normal appearing brain parenchyma, ventricles, and bony calvarium for patient's age. Visualized paranasal sinuses and mastoid air cells are clear. Impression: Normal CT head without contrast exam.
--- NOTE | 2024-08-20 13:27 | XRAY ---
Indication: Cerebrovascular accident. Comparison: August 14, 2024 Portable apical lordotic chest again demonstrates chronic mild right hemidiaphragm elevation with adjacent subsegmental atelectasis/scarring. Remaining lungs clear. Heart not enlarged again with CABG. Bony thorax intact again with mild degenerative changes. Impression: Continued nonacute chest with chronic features.
[2024-08-20 13:46] LABS: Absolute Neutrophil Ct (ANC) 5.09 x10^3/uL (1.78-5.38); BASOPHIL % 0.4 % (0.2-1.2); Basophil (Absolute #) 0.03 x10^3/uL (0.01-0.08); Eosinophil (Absolute #) 0.15 x10^3/uL (0.04-0.54); Hematocrit 40.6 % (40.1-51.0); Hemoglobin 13.4 g/dL (13.7-17.5); IMMATURE GRAN # 0.05 x10^3u/L (0.001-0.031); IMMATURE GRAN % 0.7 % (0.001-0.429); Lymphocyte (Absolute #) 1.46 x10^3/uL (1.32-3.57); Lymphocytes % 19.9 % (21.8-53.1); Mean Cell Volume 88.6 fL (79.0-92.2); Mean Corpuscular Hemoglobin 29.3 pg (25.7-32.2); Mean Platelet Volume 9.4 fL (9.4-12.4); Monocyte (Absolute #) 0.54 x10^3/uL (0.30-0.82); Monocytes % 7.4 % (5.3-12.2); Neutrophil % 69.6 % (34.0-67.9); Platelet Count 281 x10^3/uL (163-337); Red Blood Count 4.58 x10^6/uL (4.63-6.08); Red Cell Distribution Width 12.5 % (11.6-14.4); White Blood Count 7.3 x10^3/uL (4.23-9.07)
[2024-08-20 14:02] LABS: INR 0.97 (0.8-3.0); PROTIME 10.6 SECONDS (9.4-12.5); PTT 25.3 SECONDS (25.1-36.5)
[2024-08-20 14:16] LABS: ANION GAP 12.1 MEQ/L (5-15); Calcium 9.3 mg/dL (8.4-10.2); Creatinine 1 1.19 mg/dL (0.66-1.25); EST GLOMERULAR FILTRATION RATE 69.1 ML/MIN; Potassium 4.3 mmol/L (3.5-5.1)
--- NOTE | 2024-08-20 14:20 | PCM.NOTE ---
Date and Time: 08/20/24 1417 Subjective Assessment: Date and Time of Request: 08-20-2024 01:19 PM ET Requesting Clinician: DR. DOMINGUEZ Patient Name: PRINCESS PETERSON Date of : 1960 Gender: Male Patient identity was confirmed at the beginning of the consult with the patient/family/staff using two personal identifiers: Patient name and Reason for Consult Reason for Consult: Code Stroke TLKW less than 4.5 hours General Chief Complaint: L-sided numbness Patient Location and Admission Status: ED- Patient is not admitted Family Members and Medical Staff Present During Exam: nurse History of Present Illness: 63 yr old R-handed male with PMH of CAD s/p CABG (2022), NSTEMI, HTN, and HLD who presented with L-sided numbness. Pt provides the history. Symptoms began about 11 am. He felt dizzy. He had a headache. He had no energy. He had chest pressure. About 20 min later he also had numbness and tingling in the L upper and lower face and L arm. Also mild numbness or tingling in the L leg. He's had L upper and lower face numbness a couple time before this, a couple years ago and a couple months ago. No speech changes. He had some blurry vision but it is better now. He still has the tingling and numbness in the L hand and leg. Number of Documented HPI Elements: 4+ Medical History Medical History: Coronary Artery Disease, Chronic Obstructive Pulmonary Disease, Diabetes Mellitus, Hypertension Other Medical History: NSTEMI Past Procedures: Cardiac Stents, Coronary Artery Bypass Graft Pertinent Family History: Non contributory Allergies Allergies: NKDA Medications Anti-Coagulants: None Anti-Platelets: ASA 81 mg, Plavix (Clopidogrel) Other Medications: nitroglycerin, nebivolol, metformin, imdur, enalapril, atorvastatin Social History Alcohol Use: None Drug Use: None Tobacco Use: Past Other Social History : He quit smoking in 2022. Vital Signs Temperature: Afebrile Blood Pressure (mmHg): 184/110 Heart Rate (bpm): 64 Respiration Rate (/min): 18 O2 Sat (%): 97 Date and Time: 08/20/2024 02:01:41 PM ET Review Of Systems General, Constitutional: See HPI Neurological: See HPI Psychiatric: All Negative Cardiovascular: See HPI Ears, Nose, Throat: All Negative Respiratory: All Negative Gastrointestinal: All Negative Genitourinary: All Negative Musculoskeletal: All Negative Ophthalmology: All Negative NIH Stroke Scale NIH Stroke Scale Score: 1 1. Level of Consciousness: 0 : alert; keenly responsive. 1a. LOC Questions: 0 : Answers both questions correctly. 1b. LOC Commands: 0 : Performs both tasks correctly. 2. Best Gaze: 0 : Normal. 3. Visual: 0 : No visual loss. 4. Facial Palsy: 0 : Normal symmetrical movements. 5a. Motor Left Arm: 0 : No drift; limb holds 90 (or 45) degrees for full 10 seconds. 5b. Motor Right Arm : 0 : No drift; limb holds 90 (or 45) degrees for full 10 seconds. 6a. Motor Left Le : No drift; leg holds 30-degree position for full 5 seconds. 6b. Motor Right Le : No drift; leg holds 30-degree position for full 5 seconds. 7. Limb Ataxia: 0 : Absent. 8. Sensory: 1 : Otgn-gf-[id number] sensory loss; patient feels pinprick is less sharp or is dull on the affected side; or there is a loss of superficial pain with pinprick, but patient is aware of being touched. 9. Best Language: 0 : No aphasia; normal. 10. Dysarthria: 0 : Normal. 11. Extinction and inattention (formerly Neglect) : 0 : No abnormality. NIHSS Entry Time: 08/20/2024 02:11:40 PM ET Exam Exam: Neurological Exam Mental Status: Alert. Oriented x 3. Follows all commands. Speaks fluently, names, repeats. Cranial Nerves: EOMI, no nystagmus, face appears symmetric, tongue midline, shoulder shrug symmetric. Motor: no drift in any extremity, no tremor. Sensory: paresthesias to LT in L arm and leg Coordination: iycshr-[id number]-xzmmmh intact bilaterally. Gait: deferred for pt safety. Gen: No apparent distress, non-toxic appearing Psych: normal affect HEENT: No visible bruising, no mucosal pallor Ophth: No scleral icterus, no conjunctival injection or proptosis Neck: No nuchal rigidity, turns neck without difficulty Resp: normal respirations, no distress, speaking in full sentences CV: No visible edema in LE Abd: No abd distention noted MSK: No joint swelling, erythema noted. No contractures noted. Skin: No pallor. No visible rashes or bruising Clinician assisting with exam: nurse Labs and Imaging Labs available?: Yes PT (Seconds): 10.6 INR: 0.97 PTT (Seconds): 25.3 WBC (mcL): 7.3 HGB (g/dL): 13.4 PLT (mcL): 281 CT Brain Findings: No acute changes Assessment and Recommendations Assessment: 63 yr old R-handed male with PMH of CAD s/p CABG (2022), NSTEMI, HTN, and HLD who presented with L-sided numbness since 11 am[address] Head CT negative for acute findings on my review. Possible acute ischemic stroke. IV alteplase or other acute intervention is not recommended given his relatively non-disabling symptoms and signs on exam. Differential diagnosis for the stroke includes: large artery atherosclerosis, intracranial atherosclerosis, small vessel disease, or cardioembolic. All of these etiologies have the potential to tire changer aircraft and warrant further evaluation. Recommendations: - Inpatient admission. - Give aspirin 325 mg and Plavix 75 mg. Continue aspirin 81 mg and Plavix 75 mg for 21 days post-stroke/TIA then transition to Plavix monotherapy. - Obtain routine MRI brain w/o contrast. - Obtain routing CTA head and neck. - Obtain routine TTE w/ bubble. - Check hgb a1c, lipid panel, and TSH. - Permissive HTN with goal BP < 200 as tolerated by other organs. After 24-48 hours, if pt is stable, okay to lower back to normal. - Continue high intensity statin (atorvastatin 40-80 mg daily), goal LDL < 70. - Consider outpatient cardiac monitoring for 14 days. - PT/OT/BONDERIZER OPERATOR evaluations. - Call back as needed for follow-up. Disposition: Admit patient to telemetry or stroke unit Diagnosis Impression: Stroke Case discussed with: Dr. Dominguez Interaction Attestation: Clinical telemedicine services delivered using HIPAA- compliant interactive video-audio telecommunications while the patient and the rendering provider were not in the same physical location. Written report was provided to the requesting provider. Evaluation Duration (mins): 45 Physician Signature This document was electronically signed by: Eileen Paulino MD Objective Exam - Vital Signs Vital Signs: Vital Signs - 24 hr 08/20/24 08/20/24 08/20/24 12:55 13:00 13:18 Temperature 97.8 F Pulse Rate 64 68 67 Respiratory 18 17 22 Rate Blood Pressure 200/98 Blood Pressure 184/110 [Right Arm] O2 Sat by Pulse 97 98 97 Oximetry 08/20/24 13:20 Temperature Pulse Rate 62 Respiratory 18 Rate Blood Pressure 122/58 Blood Pressure [Right Arm] O2 Sat by Pulse 97 Oximetry - NIHSS Stroke Scale Date Completed: 08/20/24 Time Stroke Scale Completed: 12:56 Objective Data - Labs Lab/Micro Results: Lab Results-Last 24 Hours 08/20/24 08/20/24 08/20/24 Range/Units 12:59 13:38 13:38 WBC 7.3 (4.23-9.07) x10^3/uL RBC 4.58 L (4.63-6.08) x10^6/uL Hgb 13.4 L (13.7-17.5) g/dL Hct 40.6 (40.1-51.0) % MCV 88.6 (79.0-92.2) fL MCH 29.3 (25.7-32.2) pg MCHC 33.0 (32.3-36.5) g/dL RDW 12.5 (11.6-14.4) % Plt Count 281 (163-337) x10^3/uL MPV 9.4 (9.4-12.4) fL Gran % 69.6 H (34.0-67.9) % Immature Gran % (Auto) 0.7 H (0.001-0.429) % Nucleat RBC Rel Count 0.0 (0.00-0.2) % Eos # (Auto) 0.15 (0.04-0.54) x10^3/uL Immature Gran # (Auto) 0.05 H (0.001-0.031) x10^3u/L Absolute Lymphs (auto) 1.46 (1.32-3.57) x10^3/uL Absolute Monos (auto) 0.54 (0.30-0.82) x10^3/uL Absolute Nucleated RBC 0.00 (0.00-0.012) x10^3u/L Lymphocytes % 19.9 L (21.8-53.1) % Monocytes % 7.4 (5.3-12.2) % Eosinophils % 2.0 (0.8-7.0) % Basophils % 0.4 (0.2-1.2) % Absolute Granulocytes 5.09 (1.78-5.38) x10^3/uL Basophils # 0.03 (0.01-0.08) x10^3/uL PT 10.6 (9.4-12.5) SECONDS INR 0.97 (0.8-3.0) APTT 25.3 (25.1-36.5) SECONDS Troponin I < 0.012 (0.000-0.033) ng/mL - Radiology Orders Radiology Orders: Radiology Procedures Category Date Time Status CHEST 1 VIEW (PORTABLE) Stat Exams 08/20/24 13:00 Completed HEAD WITHOUT CONTRAST [CT] Stat Exams 08/20/24 12:53 Completed Assessment & Plan - Encounter Encounter: "The entirety of this encounter was performed via Telemedicine using audio and visual "
[2024-08-20] MEDS ORDERED: PLAVIX Tablet ONE (14:31)
[2024-08-20] MEDS ORDERED: BABY ASPIRIN 81 MG CHEW ONE (14:31)
[2024-08-20] MEDS: PLAVIX Tablet PO ONE (14:32)
[2024-08-20] MEDS: BABY ASPIRIN 81 MG CHEW PO ONE (14:32)
--- NOTE | 2024-08-20 16:07 | XRAY ---
Indication: Cerebral vascular accident. Conventional contrast enhanced CTA neck performed using 80 cc Isovue 370 contrast. 2-D sagittal and coronal reformatted images obtained. Additional 3-D reformatted images obtained using separate workstation. Comparison: None Visualized aortic arch minimally arteriosclerotic without aneurysm/dissection. Normal branching right brachiocephalic, left common carotid, and left subclavian arteries with minimal calcifications at all origins. Examination right carotid circulation demonstrates widely patent common carotid artery. Carotid bulb demonstrates moderate calcified plaquing extending into origin internal carotid artery producing 70-80% stenosis. Lesser minimal calcifications origin external carotid artery producing less than 50% stenosis. Examination left carotid circulation demonstrate widely patent common carotid artery. Carotid bulb demonstrates moderate calcified plaquing extending into origins internal carotid and lesser degree external carotid arteries. 70-80% stenosis origin internal carotid artery and 50-60% stenosis origin external carotid artery. Vertebral arteries are bilaterally symmetric and normal in CTA appearance. Visualized soft tissues are negative for pathologic cervical/supraclavicular lymphadenopathy. Thyroid gland enhances homogeneously. Supra and infraglottic airway widely patent. Normal epiglottis. Osseous structures intact with mild C3-C4 degenerative disc bulge. Also incompletely visualized anatomy wires. Lung apices demonstrates minimal pulmonary emphysema, tiny right apical calcified granuloma, and small mediastinal calcified nodes. Patient is edentulous. Impression: 1. Bilaterally symmetric carotid bulb arteriosclerotic calcifications extending into origins internal carotid and lesser degree external carotid arteries. Approximately 70-80% stenosis in both internal carotid arteries. 2. Normal CTA vertebral arteries. 3. Incidental CT findings including C3-C4 degenerative disc disease, pulmonary emphysema, and old granulomatous disease.
--- NOTE | 2024-08-20 16:11 | XRAY ---
Indication: Cerebral vascular accident. Conventional contrast enhanced CTA head performed using 80 cc Isovue 370 contrast. 2-D sagittal and coronal reformatted images obtained. Additional 3-D reformatted images obtained using separate workstation. Comparison: None Distal internal carotid arteries demonstrates moderate right and mild left diffuse parasellar arteriosclerotic calcifications without critical stenosis/obstruction. Normal carotid terminus with normal branching A1 and M1 segments bilaterally. More distal anterior cerebral and middle cerebral arteries are normal in CTA appearance. Posterior circulation demonstrates widely patent distal vertebral arteries. Normal CTA appearance to remaining basilar, left/right posterior cerebral, and left/right superior cerebellar arteries. Venous sinuses/drainage unremarkable. Brain parenchyma is negative for abnormal intra-or extra-axial enhancement. Impression: Scattered arteriosclerotic calcifications in both parasellar internal carotid arteries right greater than left without critical stenosis/obstruction. Remaining CTA head with contrast exam is negative.
[2024-08-20 18:11] VITALS: RESP 23; O2SAT 96
[2024-08-20 18:36] VITALS: BP 147/76; PULSE 57
== END 2024-08-20 18:50 | disposition short-term general hospital (02) ==
LOC: ED 12:47
DX: I63.9 Cerebral infarction, unspecified (principal); Z79.899 Other long term (current) drug therapy; I25.2 Old myocardial infarction
CPT/HCPCS: 36415; 70450; 70496; 70498; 71045; 80048; 84484; 85025; 85610; 85730; 93005; 93041; 99285; Q3014; A9270-GY

== ENCOUNTER 2024-09-13 18:39 | Emergency (ER) | payer BC ==
--- NOTE | 2024-09-13 19:02 | ERPHSYRPT ---
- History of Present Illness Source: patient Exam Limitations: no limitations Physician History: Patient has a complaints of tingling in his face is mainly on the left side. He says it goes down into his chest bilaterally. He has some tingling in his right lower arm and hand. He does not have any weakness. He has no focal neurological deficits. He says he has some chest tightness. This has happened to him before. Nothing makes symptoms better or worse. It has been going on for about an hour. It came on while he was doing normal daily activities.He has a history of vascular disease. Severity: mild, moderate Associated Symptoms: denies symptoms Allergies/Adverse Reactions: No Known Drug Allergies Allergy (Verified 09/13/24 19:18) Home Medications: Clopidogrel Bisulfate [PLAVIX 75 MG Tablet] 75 mg PO DAILY 09/16/16 [History] Nebivolol HCl [Bystolic] 10 mg PO DAILY 08/27/20 [History] Atorvastatin Calcium [Lipitor] 80 mg PO DAILY 08/14/24 [History] Aspirin EC 81 mg [Ecotrin 81 mg] 81 mg PO DAILY 08/20/24 [History] Enalapril Maleate [Vasotec] 5 mg PO DAILY 08/20/24 [History] Metformin HCl 500 mg [Glucophage 500 MG] 500 mg PO DAILY 08/20/24 [History] Hx Tetanus, Diphtheria Vaccination/Date Given: Yes Hx Influenza Vaccination/Date Given: No Hx Pneumococcal Vaccination/Date Given: No Travel Risk - Emerging Infectious Disease Are you exhibiting symptoms associated with any current EIDs: No - Review of Systems Constitutional: No Symptoms Eyes: No Symptoms Ears, Nose, & Throat: No Symptoms Respiratory: No Symptoms Cardiac: Other (Mild chest tightness and tingling in the cutaneous surfaces) Abdominal/Gastrointestinal: No Symptoms Genitourinary Symptoms: No Symptoms Musculoskeletal: No Symptoms Neurological: Other (See HPI) Psychological: No Symptoms Endocrine: No Symptoms All Other Systems: Reviewed and Negative - Past Medical History Pertinent Past Medical History: Yes Neurological History: No Pertinent History ENT History: No Pertinent History Cardiac History: Coronary Artery Disease, High Cholesterol, Hypertension, Myocardial Infarction ([place]) Respiratory History: No Pertinent History Endocrine Medical History: Diabetes Type II Musculoskeletal History: No Pertinent History GI Medical History: No Pertinent History History: No Pertinent History Psycho-Social History: No Pertinent History Male Reproductive Disorders: No Pertinent History 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 Murcia - Past Surgical History Past Surgical History: Yes Neuro Surgical History: No Pertinent History Cardiac: CABG, Cardiac Catheterization, Cardiac Stent Respiratory: No Pertinent History Gastrointestinal: No Pertinent History Genitourinary: No Pertinent History Musculoskeletal: No Pertinent History Other Surgical History: 2012 bypass - Social History Smoking Status: Former smoker How long have you smoked: 42 years Exposure to second hand smoke: No Drug Use: none Patient Lives Alone: No - Social Determinants of Health Will the patient participate in the screening: Yes Do you worry about a steady place to live?: No In the past 12 months,have you had to go without utilities?: No Transportation Issues: No Has anyone in your support network made you feel unsafe?: No Have you or anyone in your house had to go without enough: No - Nursing Vital Signs Nursing Vital Signs: Initial Vital Signs Temperature 97.9 F 09/13/24 19:19 Pulse Rate 60 09/13/24 19:19 Respiratory Rate 20 09/13/24 19:19 Blood Pressure 155/114 09/13/24 19:19 O2 Sat by Pulse Oximetry 96 09/13/24 19:19 Pain Scale Pain Intensity 5 - Physical Exam General Appearance: no apparent distress Eye Exam: PERRL/EOMI Neck Exam: normal inspection Respiratory Exam: normal breath sounds, lungs clear, No chest tenderness Cardiovascular Exam: regular rate/rhythm, normal heart sounds Gastrointestinal/Abdomen Exam: soft, normal bowel sounds, No tenderness Rectal Exam: deferred, decreased tone Back Exam: normal inspection, normal range of motion Extremity Exam: normal inspection Neurologic Exam: alert, oriented x 3, cooperative, construction site crossing guard II-XII nml as tested, normal mood/affect, nml cerebellar function, nml station & gait Skin Exam: normal color, warm, dry - Course Nursing assessment & vital signs reviewed: Yes EKG Interpreted by Me: RATE, Sinus Rhythm, Sinus Sergio, NORMAL AXIS, NORMAL INTERVALS, NORMAL QRS Ordered Tests: Active Orders 24 hr Category Date Time Status EKG-ER Only STAT Care 09/13/24 18:58 Active CHEST 1 VIEW (PORTABLE) Stat Exams 09/13/24 18:58 Taken HEAD WITHOUT CONTRAST [CT] Stat Exams 09/13/24 18:45 Taken CBC W DIFF Stat Lab 09/13/24 19:30 Completed CMP Stat Lab 09/13/24 19:30 Completed MAGNESIUM Stat Lab 09/13/24 19:30 Completed NT PRO BNPII Stat Lab 09/13/24 19:30 Completed TROPONIN Q4H Lab 09/13/24 19:30 Completed TROPONIN Q4H Lab 09/13/24 23:00 Ordered TROPONIN Q4H Lab 09/14/24 03:00 Ordered Medication Summary Discontinued Medications Generic Name Dose Route Start Last Admin Trade Name Nileshq PRN Reason Stop Dose Admin Hydrocodone Bitart/Acetaminophen 1 tab 09/13/24 20:01 09/13/24 20:03 Hydrocodone/Apap 5/325 1 Tab Tablet PO 09/13/24 20:02 1 tab STAT ONE Administration Hydrocodone Bitart/Acetaminophen Confirm 09/13/24 20:03 Hydrocodone/Apap 5/325 1 Tab Tablet Administered 09/13/24 20:04 Dose 1 tab .ROUTE .[facility] ONE Lab/Rad Data: Laboratory Result Diagrams 09/13/24 19:30 09/13/24 19:30 Laboratory Results 09/13/24 09/13/24 09/13/24 Range/Units 19:30 19:30 19:30 WBC 7.5 (4.23-9.07) x10^3/uL RBC 4.71 (4.63-6.08) x10^6/uL Hgb 13.5 L (13.7-17.5) g/dL Hct 41.2 (40.1-51.0) % MCV 87.5 (79.0-92.2) fL MCH 28.7 (25.7-32.2) pg MCHC 32.8 (32.3-36.5) g/dL RDW 12.1 (11.6-14.4) % Plt Count 302 (163-337) x10^3/uL MPV 9.1 L (9.4-12.4) fL Gran % 62.6 (34.0-67.9) % Immature Gran % (Auto) 0.7 H (0.001-0.429) % Nucleat RBC Rel Count 0.0 (0.00-0.2) % Eos # (Auto) 0.22 (0.04-0.54) x10^3/uL Immature Gran # (Auto) 0.05 H (0.001-0.031) x10^3u/L Absolute Lymphs (auto) 1.87 (1.32-3.57) x10^3/uL Absolute Monos (auto) 0.60 (0.30-0.82) x10^3/uL Absolute Nucleated RBC 0.00 (0.00-0.012) x10^3u/L Lymphocytes % 25.1 (21.8-53.1) % Monocytes % 8.1 (5.3-12.2) % Eosinophils % 3.0 (0.8-7.0) % Basophils % 0.5 (0.2-1.2) % Absolute Granulocytes 4.67 (1.78-5.38) x10^3/uL Basophils # 0.04 (0.01-0.08) x10^3/uL Sodium 140 (135-145) mmol/L Potassium 4.3 (3.5-5.1) mmol/L Chloride 106 (98-107) mmol/L Carbon Dioxide 25 (22-30) mmol/L Anion Gap 12.3 (5-15) MEQ/L BUN 19 (9-20) mg/dL Creatinine 1.04 (0.66-1.25) mg/dL Estimated GFR 81.2 ML/MIN Glucose 120 H (74-106) mg/dL Calcium 9.3 (8.4-10.2) mg/dL Magnesium 1.9 (1.6-2.3) mg/dL Total Bilirubin 0.20 (0.2-1.3) mg/dL AST 30 (17-59) U/L ALT 25 (0-50) U/L Alkaline Phosphatase 54 (38-126) U/L Troponin I < 0.012 (0.000-0.033) ng/mL NT-Pro-B Natriuret Pep 214 (<300) pg/mL Serum Total Protein 7.6 (6.3-8.2) g/dL Albumin 4.3 (3.5-5.0) g/dL - Progress Progress Note: The patient was stable throughout stay. I discussed his symptoms more with him a little bit greater length. I believe he may be hyperventilating prior to these episodes happening that would explain the tingling in his hands and face. He does have COPD and so he does have episodes when he gets short of breath right now I do not think there is anything to worry some. It seems more like a cutaneous tingling. I do not think it is heart or neurological symptoms 09/13/24 21:24 Discussed with : Cuauhtemoc - Departure Departure Disposition: Home Clinical Impression: Paresthesia Condition: Stable Critical Care Time: No Referrals: VICTORINO FRAGA MD [Primary Care Provider] - Follow up/PCP as directed Instructions: Hyperventilation
[2024-09-13 19:22] VITALS: TEMP 97.9
[2024-09-13 19:34] LABS: Absolute Neutrophil Ct (ANC) 4.67 x10^3/uL (1.78-5.38); BASOPHIL % 0.5 % (0.2-1.2); Basophil (Absolute #) 0.04 x10^3/uL (0.01-0.08); Eosinophil (Absolute #) 0.22 x10^3/uL (0.04-0.54); Hematocrit 41.2 % (40.1-51.0); Hemoglobin 13.5 g/dL (13.7-17.5); IMMATURE GRAN # 0.05 x10^3u/L (0.001-0.031); IMMATURE GRAN % 0.7 % (0.001-0.429); Lymphocyte (Absolute #) 1.87 x10^3/uL (1.32-3.57); Lymphocytes % 25.1 % (21.8-53.1); Mean Cell Volume 87.5 fL (79.0-92.2); Mean Corpuscular Hemoglobin 28.7 pg (25.7-32.2); Mean Corpuscular Hgb Concent. 32.8 g/dL (32.3-36.5); Mean Platelet Volume 9.1 fL (9.4-12.4); Monocytes % 8.1 % (5.3-12.2); Neutrophil % 62.6 % (34.0-67.9); Platelet Count 302 x10^3/uL (163-337); Red Blood Count 4.71 x10^6/uL (4.63-6.08); Red Cell Distribution Width 12.1 % (11.6-14.4); White Blood Count 7.5 x10^3/uL (4.23-9.07)
[2024-09-13 20:00] LABS: ALBUMIN 4.3 g/dL (3.5-5.0); ANION GAP 12.3 MEQ/L (5-15); BILIRUBIN,TOTAL 0.2 mg/dL (0.2-1.3); Calcium 9.3 mg/dL (8.4-10.2); Creatinine 1 1.04 mg/dL (0.66-1.25); EST GLOMERULAR FILTRATION RATE 81.2 ML/MIN; MAGNESIUM 1.9 mg/dL (1.6-2.3); Potassium 4.3 mmol/L (3.5-5.1); Total Protein 7.6 g/dL (6.3-8.2)
[2024-09-13 20:02] VITALS: O2SAT 96
[2024-09-13] MEDS ORDERED: NORCO 5/325 MG ONE (20:03)
[2024-09-13] MEDS: NORCO 5/325 MG PO ONE (20:03)
[2024-09-13 20:23] LABS: NT PRO BNPII 214 pg/mL (<300); TROPONIN < 0.012 ng/mL (0.000-0.033)
[2024-09-13 21:14] VITALS: BP 153/84; PULSE 61; RESP 17
--- NOTE | 2024-09-14 08:39 | XRAY ---
Indication: Left-sided weakness. Multiple contiguous axial images obtained through the head without contrast. Comparison: August 20, 2024 Normal appearing brain parenchyma, ventricles, and bony calvarium for patient's age. Visualized paranasal sinuses and mastoid air cells are clear. Impression: Continued normal CT head without contrast exam.
--- NOTE | 2024-09-14 08:41 | XRAY ---
Indication: Chest tightness. Comparison: August 20, 2024 Portable apical lordotic chest again demonstrates chronic right hemidiaphragm elevation with adjacent subsegmental atelectasis/scarring. Remaining heart and lungs unremarkable again with incidental CABG. Bony thorax intact again with mild degenerative changes. No new/acute findings.
== END 2024-09-13 21:59 | disposition home or self-care (01) ==
LOC: ED 18:39
DX: R20.2 Paresthesia of skin (principal); R07.9 Chest pain, unspecified; E78.5 Hyperlipidemia, unspecified; I10 Essential (primary) hypertension; E11.9 Type 2 diabetes mellitus without complications; Z79.02 Long term (current) use of antithrombotics/antiplatelets; Z79.84 Long term (current) use of oral hypoglycemic drugs; Z79.899 Other long term (current) drug therapy
CPT/HCPCS: 36415; 70450; 71045; 80053; 83735; 83880; 84484; 85025; 93005; 99284; 99285; A9270-GY

== ENCOUNTER 2024-12-01 23:26 | Observation (INO) | payer BC ==
[2024-12-02 00:07] LABS: Absolute Neutrophil Ct (ANC) 4.01 x10^3/uL (1.78-5.38); BASOPHIL % 0.5 % (0.2-1.2); Basophil (Absolute #) 0.04 x10^3/uL (0.01-0.08); Eosinophil % 3.5 % (0.8-7.0); Eosinophil (Absolute #) 0.27 x10^3/uL (0.04-0.54); Hematocrit 40.5 % (40.1-51.0); Hemoglobin 12.8 g/dL (13.7-17.5); IMMATURE GRAN # 0.05 x10^3u/L (0.001-0.031); IMMATURE GRAN % 0.6 % (0.001-0.429); Lymphocytes % 35.1 % (21.8-53.1); Mean Cell Volume 90.6 fL (79.0-92.2); Mean Corpuscular Hemoglobin 28.6 pg (25.7-32.2); Mean Corpuscular Hgb Concent. 31.6 g/dL (32.3-36.5); Mean Platelet Volume 9.3 fL (9.4-12.4); Monocyte (Absolute #) 0.63 x10^3/uL (0.30-0.82); Monocytes % 8.2 % (5.3-12.2); Neutrophil % 52.1 % (34.0-67.9); Platelet Count 327 x10^3/uL (163-337); Red Blood Count 4.47 x10^6/uL (4.63-6.08); Red Cell Distribution Width 14.4 % (11.6-14.4); White Blood Count 7.7 x10^3/uL (4.23-9.07)
[2024-12-02 00:22] LABS: ALBUMIN 4.4 g/dL (3.5-5.0); ANION GAP 17.4 MEQ/L (5-15); BILIRUBIN,TOTAL 0.6 mg/dL (0.2-1.3); Calcium 9.3 mg/dL (8.4-10.2); Creatinine 1 0.88 mg/dL (0.66-1.25); EST GLOMERULAR FILTRATION RATE 96.6 ML/MIN; Total Protein 7.7 g/dL (6.3-8.2)
[2024-12-02 00:24] LABS: INR 0.95 (0.8-3.0); PROTIME 10.4 SECONDS (9.4-12.5); PTT 26.8 SECONDS (25.1-36.5)
[2024-12-02] MEDS ORDERED: Zofran 4 MG/2 ML VIAL ONE (00:27)
[2024-12-02] MEDS ORDERED: MORPHINE SULFATE 4 MG INJ ONE (00:27)
[2024-12-02] MEDS: MORPHINE SULFATE 4 MG INJ IV ONE (00:28)
[2024-12-02] MEDS: Zofran 4 MG/2 ML VIAL IV ONE (00:29)
[2024-12-02 00:34] LABS: NT PRO BNPII 362 pg/mL (<300); TROPONIN < 0.012 ng/mL (0.000-0.033)
--- NOTE | 2024-12-02 01:00 | XRAY ---
CLINICAL HISTORY: facial numbness/headache COMPARISON: 09/13/2024 TECHNIQUE: Axial non-contrast CT scan of the brain was performed from the skull base to the high parietal region. One of the following dose reduction techniques were utilized for this exam: Automated exposure control, adjustment of the mA and/or kV according to patient size, use of iterative reconstruction. FINDINGS: Brain Parenchyma: Normal attenuation of the cerebral hemispheres, cerebellum, and brainstem. No evidence of acute infarct, hemorrhage, or mass effect. Mild age-related cortical atrophic changes are seen with deepening of sulci and prominence of ventricular system. A small area of chronic infarction is noted in right occipital lobe. Ventricular System: Ventricles are normal in size and configuration. No evidence of hydrocephalus or ventricular enlargement. Subarachnoid Spaces: Normal sulci and cisterns. No evidence of subarachnoid hemorrhage or extra-axial fluid collections. Cerebellum and Brainstem: Normal size and signal. No masses, lesions, or areas of abnormal signal. Orbits: Normal appearance of the globes, optic nerves, and extraocular muscles. No evidence of orbital masses or abnormal signal. Sinuses: A 2.1 cm retention cyst is noted in the right maxillary sinus, interval new. Lobulated mucosal thickening is seen in the sphenoid sinus. Mildly rightward deviated medial nasal septum. Mastoid Air Cells: Clear mastoid air cells. No evidence of mastoiditis. Skull: Normal skull morphology. IMPRESSION: No acute intracranial hemorrhage or acute territorial infarction. Early changes of stroke may not be detected on a CT scan. If strong clinical suspicion of stroke then suggest MRI with diffusion-weighted imaging. Stable small right occipital chronic infarction. Stable age-related cerebral involutional changes. Lobulated mucosal thickening in the sphenoid sinus is noted and retention cyst in left maxillary sinus Interval new findings. Electronically Signed by: Joel Jeronimo MD. (12/02/2024 00:56:06 EDT)
--- NOTE | 2024-12-02 01:04 | XRAY ---
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 Angiographic images were processed, 3D MIP images were acquired for interpretation.Contiguous axial images were obtained. Reformatted coronal and sagittal images were also reviewed. If IV contrast material had not been administered, the likelihood of detecting abnormalities relevant to the patients condition would have been substantially decreased. CT scan was performed according to ALARA (as low as reasonable achievable). FINDINGS: Atherosclerotic calcifications is noted involving left carotid bulb and bifurcation causes 60%-70% luminal narrowing. Included great vessels of the aortic arch are grossly unremarkable. Common carotid artery, right carotid Bulb, internal carotid artery , and origin of the external carotid artery are well opacified. Vertebral arteries are well opacified. Jugular veins are well opacified. Included lung apices are grossly unremarkable. Thyroid gland appears unremarkable. IMPRESSION: s Atherosclerotic calcifications is noted involving left carotid bulb and bifurcation causes 60%-70% luminal narrowing. -stable. No other new interval abnormality since prior study. Electronically Signed by: Joel Jeronimo MD. (12/02/2024 01:00:22 EDT)
--- NOTE | 2024-12-02 01:12 | ERPHSYRPT ---
- History of Present Illness Time Seen by Provider: 12/01/24 23:28 Source: patient Exam Limitations: no limitations Patient Subjective Stated Complaint: c/o headache and numbess to face and head Triage Nursing Assessment: patient brought to ED with c/o headache and facial numbess. patient states that he had a right carotid surgwry 4 weeks ago and has had a headache since the surgery. patient states that around 3 days ago his face started to feel numb. rates pain 8/10. stroke scale was 0, gait steady, skin w/n/d, hypertensive, afebrile, patient doesn't appear to be in any distress at this time. Physician History: 64 years old male with history of coronary artery disease status post CABG, hypertension, hyperlipidemia, diabetes mellitus, peripheral vascular disease with carotid endarterectomy on the right side [address] Velasco at [facility] presented in the ER with complains of headache off and on for 4 weeks with progressive worsening lately and for the last couple of days having numbness and tingling sensation in the face and scalp which is worse tonight. Denies any difficulty speech, does report mild blurry vision bilaterally but no diplopia. No other focal weakness or numbness reported. Patient reports 56/10 intensity headache off and on but today is 8/10 intensity headache involving the entire head with no photophobia. No associated nausea or vomiting. No history of migraines. Allergies/Adverse Reactions: No Known Drug Allergies Allergy (Verified 12/01/24 23:46) Home Medications: Clopidogrel Bisulfate [PLAVIX 75 MG Tablet] 75 mg PO DAILY 09/16/16 [History] Nebivolol HCl [Bystolic] 10 mg PO DAILY 08/27/20 [History] Atorvastatin Calcium [Lipitor] 80 mg PO DAILY 08/14/24 [History] Aspirin EC 81 mg [Ecotrin 81 mg] 81 mg PO DAILY 08/20/24 [History] Enalapril Maleate [Vasotec] 10 mg PO DAILY 08/20/24 [History] Metformin HCl 500 mg [Glucophage 500 MG] 500 mg PO DAILY 08/20/24 [History] Hx Tetanus, Diphtheria Vaccination/Date Given: Yes Hx Influenza Vaccination/Date Given: No Hx Pneumococcal Vaccination/Date Given: No Travel Risk - International Travel Have you traveled outside of the country in past 3 weeks: No - Emerging Infectious Disease Are you exhibiting symptoms associated with any current EIDs: No - Review of Systems Constitutional: No Symptoms Eyes: No Symptoms Ears, Nose, & Throat: No Symptoms Respiratory: No Symptoms Cardiac: Chest Pain Abdominal/Gastrointestinal: No Symptoms Genitourinary Symptoms: No Symptoms Skin: No Symptoms Neurological: Headache, Parasthesia Psychological: No Symptoms Endocrine: No Symptoms Hematologic/Lymphatic: No Symptoms Immunological/Allergic: No Symptoms - Past Medical History Pertinent Past Medical History: Yes Neurological History: No Pertinent History ENT History: No Pertinent History Cardiac History: Coronary Artery Disease, High Cholesterol, Hypertension, Myocardial Infarction (NH) Respiratory History: No Pertinent History Endocrine Medical History: Diabetes Type II Musculoskeletal History: No Pertinent History GI Medical History: No Pertinent History History: No Pertinent History Psycho-Social History: No Pertinent History Male Reproductive Disorders: No Pertinent History 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 - Past Surgical History Past Surgical History: Yes Neuro Surgical History: No Pertinent History Cardiac: CABG, Cardiac Catheterization, Cardiac Stent Respiratory: No Pertinent History Gastrointestinal: No Pertinent History Genitourinary: No Pertinent History Musculoskeletal: No Pertinent History Other Surgical History: 2013 bypass x 2, carotid surgery to the right side - Social History Smoking Status: Former smoker Exposure to second hand smoke: No Drug Use: none - Social Determinants of Health Will the patient participate in the screening: Declined to provide - Nursing Vital Signs Nursing Vital Signs: Initial Vital Signs Pulse Rate 61 12/01/24 23:39 Respiratory Rate 25 H 12/01/24 23:39 Blood Pressure 200/120 12/01/24 23:39 O2 Sat by Pulse Oximetry 96 12/01/24 23:39 Pain Scale Pain Intensity 5 - Peterson Coma Scale Best Eye Response (Peterson): (4) open spontaneously Best Verbal Response (Jagdeep): (5) oriented Best Motor Response (Jagdeep): (6) obeys commands Peterson Total: 15 - Physical Exam General Appearance: no apparent distress, alert Eye Exam: bilateral eye: normal inspection, PERRL, EOMI Ears, Nose, Throat Exam: normal ENT inspection, TMs normal, moist mucous membranes Neck Exam: normal inspection, non-tender, supple, full range of motion, No meningismus Respiratory: normal breath sounds, lungs clear Cardiovascular: regular rate/rhythm, normal heart sounds Gastrointestinal: soft, normal bowel sounds, No tenderness Extremity Exam: normal inspection, normal range of motion Mental Status: alert, oriented x 3, cooperative chain tender Exam: normal hearing, normal speech, PERRL Coordination/Gait: normal finger to nose Motor/Sensory: no motor deficit, negative Babinski's sign, No no sensory deficit (3 sensations of fine touch in the whole face) DTR: bicep (R): 2+, bicep (L): 2+, knee (R): 2+, knee (L): 2+ Skin Exam: normal color SpO2 Interpretation: normal SpO2: 95 O2 Delivery: Room Air - Course EKG Interpreted by Me: RATE (60), Sinus Rhythm, NORMAL AXIS, NORMAL INTERVALS, N ORMAL QRS Ordered Tests: Active Orders 24 hr Category Date Time Status Choir Singer STAT Care 12/01/24 23:48 Active EKG-ER Only STAT Care 12/01/24 23:47 Active IV Insertion STAT Care 12/01/24 23:47 Active CHEST 1 VIEW (PORTABLE) Stat Exams 12/01/24 23:[address] ANGIOGRAPHY NECK [CT] Stat Exams 12/01/24 23:46 Completed CTA HEAD W AND/OR WO CONTRAST [CT] Stat Exams 12/01/24 23:46 Completed ESR [Erythrocyte Sedimentation Rate] Stat Lab 12/02/24 01:55 Ordered TROPONIN Q4H Lab 12/02/24 03:48 Ordered TROPONIN Q4H Lab 12/02/24 07:48 Ordered Medication Summary Generic Name Dose Route Start Last Admin Trade Name Freq PRN Reason Stop Dose Admin Sodium Chloride 1,000 mls @ 999 mls/hr 12/02/24 01:03 12/02/24 01:28 Sodium Chloride 0.9% 1000 Ml IV 12/02/24 02:03 999 mls/hr .Q1H1M STA Administration Discontinued Medications Generic Name Dose Route Start Last Admin Trade Name Freq PRN Reason Stop Dose Admin Sodium Chloride Confirm 12/02/24 01:27 Sodium Chloride 0.9% 1000 Ml Administered 12/02/24 01:28 Dose 1,000 mls @ ud .ROUTE .STK-MED ONE Morphine Sulfate 4 mg 12/01/24 23:47 12/02/24 00:28 Morphine Sulfate 4 Mg/Ml Injection IV 12/01/24 23:48 4 mg STAT ONE Administration Morphine Sulfate Confirm 12/02/24 00:27 Morphine Sulfate 4 Mg/Ml Injection Administered 12/02/24 00:28 Dose 4 mg .ROUTE .STK-MED ONE Ondansetron HCl 4 mg 12/01/24 23:47 12/02/24 00:29 Ondansetron Hcl 4 Mg/2 Ml Vial IV 12/01/24 23:48 4 mg STAT ONE Administration Ondansetron HCl Confirm 12/02/24 00:27 Ondansetron Hcl 4 Mg/2 Ml Vial Administered 12/02/24 00:28 Dose 4 mg .ROUTE .STK-MED ONE Lab/Rad Data: Laboratory Result Diagrams 12/01/24 00:03 12/01/24 00:03 Laboratory Results 12/01/24 12/01/24 12/01/24 Range/Units 00:03 00:03 00:03 WBC (4.23-9.07) x10^3/uL RBC (4.63-6.08) x10^6/uL Hgb (13.7-17.5) g/dL Hct (40.1-51.0) % MCV (79.0-92.2) fL MCH (25.7-32.2) pg MCHC (32.3-36.5) g/dL RDW (11.6-14.4) % Plt Count (163-337) x10^3/uL MPV (9.4-12.4) fL Gran % (34.0-67.9) % Immature Gran % (Auto) (0.001-0.429) % Nucleat RBC Rel Count (0.00-0.2) % Eos # (Auto) (0.04-0.54) x10^3/uL Immature Gran # (Auto) (0.001-0.031) x10^3u/L Absolute Lymphs (auto) (1.32-3.57) x10^3/uL Absolute Monos (auto) (0.30-0.82) x10^3/uL Absolute Nucleated RBC (0.00-0.012) x10^3u/L Lymphocytes % (21.8-53.1) % Monocytes % (5.3-12.2) % Eosinophils % (0.8-7.0) % Basophils % (0.2-1.2) % Absolute Granulocytes (1.78-5.38) x10^3/uL Basophils # (0.01-0.08) x10^3/uL PT 10.4 (9.4-12.5) SECONDS INR 0.95 (0.8-3.0) APTT 26.8 (25.1-36.5) SECONDS Sodium 143 (135-145) mmol/L Potassium 4.0 (3.5-5.1) mmol/L Chloride 105 (98-107) mmol/L Carbon Dioxide 24 (22-30) mmol/L Anion Gap 17.4 H (5-15) MEQ/L BUN 15 (9-20) mg/dL Creatinine 0.88 (0.66-1.25) mg/dL Estimated GFR 96.6 ML/MIN Glucose 104 (74-106) mg/dL Calcium 9.3 (8.4-10.2) mg/dL Total Bilirubin 0.60 (0.2-1.3) mg/dL AST 27 (17-59) U/L ALT 26 (0-50) U/L Alkaline Phosphatase 67 (38-126) U/L Troponin I < 0.012 (0.000-0.033) ng/mL NT-Pro-B Natriuret Pep 362 (<300) pg/mL Serum Total Protein 7.7 (6.3-8.2) g/dL Albumin 4.4 (3.5-5.0) g/dL 12/01/24 Range/Units 00:03 WBC 7.7 (4.23-9.07) x10^3/uL RBC 4.47 L (4.63-6.08) x10^6/uL Hgb 12.8 L (13.7-17.5) g/dL Hct 40.5 (40.1-51.0) % MCV 90.6 (79.0-92.2) fL MCH 28.6 (25.7-32.2) pg MCHC 31.6 L (32.3-36.5) g/dL RDW 14.4 (11.6-14.4) % Plt Count 327 (163-337) x10^3/uL MPV 9.3 L (9.4-12.4) fL Gran % 52.1 (34.0-67.9) % Immature Gran % (Auto) 0.6 H (0.001-0.429) % Nucleat RBC Rel Count 0.0 (0.00-0.2) % Eos # (Auto) 0.27 (0.04-0.54) x10^3/uL Immature Gran # (Auto) 0.05 H (0.001-0.031) x10^3u/L Absolute Lymphs (auto) 2.70 (1.32-3.57) x10^3/uL Absolute Monos (auto) 0.63 (0.30-0.82) x10^3/uL Absolute Nucleated RBC 0.00 (0.00-0.012) x10^3u/L Lymphocytes % 35.1 (21.8-53.1) % Monocytes % 8.2 (5.3-12.2) % Eosinophils % 3.5 (0.8-7.0) % Basophils % 0.5 (0.2-1.2) % Absolute Granulocytes 4.01 (1.78-5.38) x10^3/uL Basophils # 0.04 (0.01-0.08) x10^3/uL PT (9.4-12.5) SECONDS INR (0.8-3.0) APTT (25.1-36.5) SECONDS Sodium (135-145) mmol/L Potassium (3.5-5.1) mmol/L Chloride (98-107) mmol/L Carbon Dioxide (22-30) mmol/L Anion Gap (5-15) MEQ/L BUN (9-20) mg/dL Creatinine (0.66-1.25) mg/dL Estimated GFR ML/MIN Glucose (74-106) mg/dL Calcium (8.4-10.2) mg/dL Total Bilirubin (0.2-1.3) mg/dL AST (17-59) U/L ALT (0-50) U/L Alkaline Phosphatase (38-126) U/L Troponin I (0.000-0.033) ng/mL NT-Pro-B Natriuret Pep (<300) pg/mL Serum Total Protein (6.3-8.2) g/dL Albumin (3.5-5.0) g/dL - Progress Progress: improved, re-examined Progress Note: 12/02/24 01:57 64-year-old with multiple medical problems including CAD with CABG, peripheral vascular disease recent right carotid endarterectomy and scheduled for left side in a couple of weeks, diabetes mellitus, remote history of migraine is evaluated in the ER for worsening headache since right endarterectomy and having numbness on the face without facial droop and no other focal weakness for the last couple of days. Patient is made stroke activated and prompt CT head along with CTA head and neck are obtained which are negative for any acute findings. EKG is sinus rhythm with no acute ischemic changes Given morphine for symptomatic relief, headache is remarkably improved on reevaluation. Has normal white count, chemistries fairly unremarkable and negative troponins. Obtain [facility] neurology consult and discussed with Dr. Rapp who has seen patient, recommended inpatient MRI, continue with DAPT, patient has taken multiple doses of Excedrin Migraine which does have aspirin, do not think needs another dose of aspirin. Chest x-ray is negative for any acute cardiopulmonary findings reviewed by me, official final report is pending Patient has history of migraines in the past send this could be complex migraine versus strokelike symptoms, we will obtain ESR although it is less likely to be temporal arteritis. Discussed with Dr. Christian and patient is being admitted to hospitalist service here. I have shared the results of workup with patient and family and plan of admission which they understand and agree. Discussed with Dr.: Other (Dr. Rapp neurology and Dr. Christian hospitalist) Will see patient in: hospital (observation) Counseled pt/family regarding: lab results, diagnosis, rad results Medical Desision Making - Independent Historian Additional History obtained from: Spouse - Discussion of managment Care discussed with:: specialist (Dr. Rapp neurology/Dr. Christian hospitalist) Reviewed:: Test results Agreed on:: Treatment plan, place in obs Will see patient: in hospital - Diagnostic Testing Diagnostic test were ordered, analyzed, and reviewed by me: Yes Radiological Interpretation: Interpreted by me, Reviewed by me, Teleradiologist Report - Risk of complications The pt has a mod risk of morbidity or mortality based on: Need for prescription drug management The pt has a high risk of morbidity or mortality based on: Decision regarding hospitilization or escalation of hosp level of care - Departure Departure Disposition: Observation Clinical Impression: Facial paresthesia, Migraine Condition: Stable Critical Care Time: Yes Critical Care Time(excluding separately billable procedures): Critical 30-74 mins Referrals: VICTORINO FRAGA MD [Primary Care Provider] - Follow up/PCP as directed
[2024-12-02] MEDS ORDERED: Sodium Chloride 0.9% 1000 ML 1,000 ML ONE (01:27)
[2024-12-02] MEDS: Sodium Chloride 0.9% 1000 ML 1,000 ML IV STA (01:28)
--- NOTE | 2024-12-02 01:34 | PCM.CONS ---
History of Present Illness - Neuro Consultation Date of Consultation Date: 12/02/24 ED Arrival Date & Time: 12/01/24 23:26 Providers: Attending Provider: ED Provider: ARIA ADAMS MD Consulting Provider: SKYE RAPP MD cc:: The requesting physician will be sent a copy of the consult. - History of Present Illness HPI: The patient is a 64M Physician Signature This document was electronically signed by: Skye Rapp MD 12/02/2024 01:28 AM Consult Cover Page FROM: [facility], Call Back Number: [phone] SUBJECT: Consult Recommendations Date and Time of Report: 12/02/2024 01:28 AM ET Items Contained in this Document: Neurology Consult Note Consult Information [facility] Consult ID: [id number] Facility Time Zone: ET Date and Time of Request: 12-02-2024 12:43 AM ET Requesting Clinician: Dr. Adams Patient Name: PRINCESS PETERSON Date of : 1960 Gender: Male Patient identity was confirmed at the beginning of the consult with the patient/family/staff using two personal identifiers: Patient name and Teleneurology Roll Or Tape Edge Machine Operator: Skye Rapp MD Reason for Consult Reason for Consult: Code Stroke TLKW 4.5 to 24 hours General Chief Complaint: stroke alert Patient Location and Admission Status: ED- Patient is not admitted Family Members and Medical Staff Present During Exam: RN History of Present Illness: Telestroke Note: Date patient last known well: sx onset a few days prior . no current symptoms Time patient last known well: n/a Referring Site: [facility] Referring Provider: Dr. Adams Neurologist evaluation date: 12/02/2024 Neurologist call time: 1246 Neurologist on-cart time: 1250 Neurologist evaluation with patient time: 1250 Mr. Peterson is a 64 yo M w/pmhx CAD s/p CABG and stents, recent R CEA 5 weeks ago, HTN, HLD who presents with intermittent left sided numbness and tingling on his face with associated head pain. He reports that he had his R carotid cleaned out a few weeks ago after being found to have an occlusion when he presented with similar symptoms to today. He denies being informed of any history of stroke.. He denies any weakness of his limbs, speech changes, facial droop. He reports that sometimes his vision seems more blurry when he is looking at a fixed object which has been occurring for the last few days but denies any loss of vision. He denies any major changes in his vision. He reports having associated photophobia, phonophobia. Denies any nausea,vomiting. He denies experiencing any numbness or tingling anywhere else in his body. He reports experiencing this right before prince and was told he was hyperventilating. He reports that he underwent MRIB at the time and he was found to have right sided carotid disease and had that cleaned out. He is scheduled for L carotid intervention on the of this month. He reports having a bifrontal headache that sometimes migrates to the back of his head. He denies any jaw claudication. He reports that the headache has been present since yesterday and he took excedrin which did not do much. He reports that the CHEN has been constant for the last day. He reports that he has a history of migraine many years ago and this feels similar to this. He reports that the numbness, tingling sensation on his face subsides when his CHEN pain improves. In the past, he used to lay on the shower with his lights off when he had a migraine but he does not recall if he had sensory symptoms with it. He also reports an aura of squiggly lines across his eyes and he did have that earlier today. He reports his CHEN pain is currently a 5 and was previously an 8 when the sensory symptoms were present. Number of Documented HPI Elements: 4+ Medical History Other Medical History: as noted in HPI Past Procedures: Cardiac Stents, Coronary Artery Bypass Graft Pertinent Family History: Non contributory Allergies Allergies: NKDA Medications Anti-Coagulants: None Anti-Platelets: ASA 81 mg, Plavix (Clopidogrel) Other Medications: metformin elanapril Social History Alcohol Use: Past Illicit Drug Use: None Tobacco Use: Past Vital Signs Temperature: Afebrile Blood Pressure (mmHg): 154/97 Heart Rate (bpm): 63 Respiration Rate (/min): 27 O2 Sat (%): 94 POC Glucose(mg/dL): 104 Date and Time: 12/02/2024 12:59:17 AM ET Review Of Systems General, Constitutional: All Negative Neurological: All Negative Psychiatric: All Negative Ears, Nose, Throat: All Negative Respiratory: All Negative Gastrointestinal: All Negative Genitourinary: All Negative Musculoskeletal: All Negative Endocrine: All Negative Hematologic, Lymphatic: All Negative Integumentary: All Negative Ophthalmology: All Negative Allergy, Immunology: All Negative NIH Stroke Scale NIH Stroke Scale Score: 0 1. Level of Consciousness: 0 : alert; keenly responsive. 1a. LOC Questions: 0 : Answers both questions correctly. 1b. LOC Commands: 0 : Performs both tasks correctly. 2. Best Gaze: 0 : Normal. 3. Visual: 0 : No visual loss. 4. Facial Palsy: 0 : Normal symmetrical movements. 5a. Motor Left Arm: 0 : No drift; limb holds 90 (or 45) degrees for full 10 seconds. 5b. Motor Right Arm : 0 : No drift; limb holds 90 (or 45) degrees for full 10 seconds. 6a. Motor Left Le : No drift; leg holds 30-degree position for full 5 seconds. 6b. Motor Right Le : No drift; leg holds 30-degree position for full 5 seconds. 7. Limb Ataxia: 0 : Absent. 8. Sensory: 0 : Normal; no sensory loss. 9. Best Language: 0 : No aphasia; normal. 10. Dysarthria: 0 : Normal. 11. Extinction and inattention (formerly Neglect) : 0 : No abnormality. NIHSS Entry Time: 12/02/2024 01:03:08 AM ET Exam Exam: PHYSICAL EXAMINATION EXAM: Constitutional: appearance normally developed Face: normocephalic and atraumatic Eyes: normal lids, normal conjunctiva Neck: supple Respiratory: normal effort Abdomen: non distended Skin: no rashes, lesions, or ulcers noted Psychiatric: normal mood and normal affect NEUROLOGIC EXAMINATION: Appearance: no acute distress Orientation: awake, alert and oriented x 3 Mental Status: alert Attention: normal Knowledge: appropriate Language: no aphasia Speech: no dysarthria Cranial Nerves: CN 2 - no visual defect on confrontation and pupils round, equal CN 3, 4, 6 - extra-ocular movements intact CN 5 - facial sensation intact CN 7 - no facial asymmetry CN 8 - intact hearing CN 9, 10 - palate symmetric CN 11 - good shoulder shrug CN 12 - tongue midline Motor: no drift of any limbs, able to hold them all AG without issue Gait: deferred Coordination: no ataxia with finger to nose testing or HTS Sensory: intact and symmetric to light touch Clinician assisting with exam: RN Labs and Imaging Labs available?: Yes WBC (mcL): 7.7 HGB (g/dL): 12.8 PLT (mcL): 327 Na (mEq/L): 143 K (mEq/L): 4 Cr (mg/dL): 0.88 CT Brain Findings: No acute changes MRI Brain Findings: Not Applicable Other Imaging Studies/Findings: CTA H/N- 60-70% stenosis of L carotid Chronic appearing L occipital stroke Assessment and Recommendations Assessment: Mr. Peterson is a 64 yo M w/pmhx CAD s/p CABG and stents, recent R CEA 5 weeks ago, HTN, HLD who presents with intermittent left sided numbness and tingling on his face with associated headache, photophobia and phonophobia. He reports a history of migraine in the past with a visual aura including squiggly lines across his visual field which he experienced today. He has not had a migraine in about 3-4 years and his headache pain is currently a 5. WIth improvement in his CHEN pain, he has noticed improvement in his sensory symptoms. He recently underwent R CEA about 5 weeks ago and is scheduled for L CEA due to 60-70% occlusion of LICA in the upcoming weeks. DDx is most concerning for atypical migraine but given age, change in migraine quality and reemergence after a number of years coupled with vascular risk factors, recommend evaluation for underlying vascular etiology. CTH with no acute pathology, CTA H/N with no acute LVO but showing 60-70% stenosis of LICA (unchanged from prior). Patient denies any overt symptoms of visual disturbances (i.e. painless vision loss, etc) aside from intermittent blurry vision when attempting to focus on an object at times, denies jaw claudication, temporal tenderness making GCA lower on the DDX. At the time of our encounter, patient had NIHSS 0 and was outside of the window so thrombolytics were not administered. Recommendations: Continue on DAPT with bASA and plavix 75 mg daily. Obtain asp/adrienne resistance panel (P2Y12) MRI brain without contrast Check ESR, CRP Telemetry monitoring Recommend comprehensive metabolic and infectious workup Recommend treatment of underlying CHEN pain while patient undergoing workup including IVF (as tolerated), IV Mg, IM toradol (if no c/o), tylenol, reglan (check Qtc prior to administration and avoid if prolonged) Thank you for allowing us to participate in this patient's care. Please call [facility] with questions, concerns of change in the patient's neurological condition. This consult was done via secure telemedicine audio/visual platform. Patient identity verified and consent was obtained. Staff that participated with the visit included: RN Synchronous Audio-Visual Visit: Patient Consent Obtained?This visit was performed using real-time audio and video connection between my location and the patients location with the assistance of a surrogate at the patients location. Written or verbal consent was obtained from the patient/guardian to perform this visit using synchronous telemedicine technology. Any patient questions regarding the telemedicine interaction were answered. Disposition: Admit patient to telemetry or stroke unit Miscellaneous Patient identity was confirmed at the beginning of the consult with the patient/family/staff using two personal identifiers: Patient name and Diagnosis Impression: Other Diagnosis Other: stroke vs. migraine Case discussed with: Dr. Adams Inclusion Criteria Neurological deficit considered to be disabling within 4.5 h of ischemic stroke symptom onset or patient last known well: No BP < 185/110: Yes Glucose > 50 mg/dL: Yes Thrombolysis Recommendation Thrombolysis recommended?: No Reason Thrombolysis not recommended: Outside of window ICD-10 Code ICD-10 Code (Primary): R20.0 : Anesthesia of skin ICD-10 Code: R51.9 : Headache, unspecified ICD-10 Code: R29.700 : NIHSS score 0 Attestation Interaction Mode: Video & Phone Time of Phone Call : 12-02-2024 01:25 AM ET Time of Video Call : 12-02-2024 12:50 AM ET Interaction Attestation: Clinical telemedicine services delivered using HIPAA- compliant interactive video-audio telecommunications while the patient and the rendering provider were not in the same physical location. Written report was provided to the requesting provider. [place] Timer Summary ED Arrival Date and Time: 12-01-2024 11:30 PM ET Date and Time of Request: 12-02-2024 12:43 AM ET Physician Signature This document was electronically signed by: Skye Rapp MD 12/02/2024 01:28 AM Review of Systems - Review of Systems Review of Systems (Narrative): Pertinent positive and negative findings as per HPI. All other systems negative. 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 Murcia - Past Surgical History Past Surgical History: Yes Neuro Surgical History: No Pertinent History Cardiac History: CABG, Cardiac Catheterization, Cardiac Stent Respiratory Surgery: No Pertinent History GI Surgical History: No Pertinent History Genitourinary Surgical Hx: No Pertinent History Musculskeletal Surgical Hx: No Pertinent History Other Surgical History: 2013 bypass x 2, carotid surgery to the right side - Social History Smoking Status: Former smoker How long have you smoked: 42 years Exposure to second hand smoke: No Alcohol: None, Occasionally Drug Use: none - Social Determinants of Health Will the patient participate in the screening: Declined to provide Do you worry about a steady place to live?: No In the past 12 months,have you had to go without utilities?: No Have you or anyone in your house had to go without enough: No Transportation Issues: No Has anyone in your support network made you feel unsafe?: No Physical Exam - Vital Signs Vital Signs: Vital Signs - 24 hr 12/01/24 12/01/24 12/02/24 23:39 23:47 00:16 Temperature 97.3 F Pulse Rate 61 59 L 59 L Respiratory 25 H 29 H 23 Rate Blood Pressure 200/120 161/85 Blood Pressure 200/120 [left] O2 Sat by Pulse 96 97 95 Oximetry 12/02/24 12/02/24 12/02/24 00:30 01:01 01:13 Temperature Pulse Rate 65 66 Respiratory 38 H 24 Rate Blood Pressure 154/97 141/99 Blood Pressure [left] O2 Sat by Pulse 92 L 94 L 95 Oximetry - NIHSS Stroke Scale Date Completed: 12/02/24 Time Stroke Scale Completed: 00:02 Results - Labs Lab/Micro Results: Lab Results-Last 24 Hours 12/01/24 12/01/24 12/01/24 Range/Units 00:03 00:03 00:03 WBC 7.7 (4.23-9.07) x10^3/uL RBC 4.47 L (4.63-6.08) x10^6/uL Hgb 12.8 L (13.7-17.5) g/dL Hct 40.5 (40.1-51.0) % MCV 90.6 (79.0-92.2) fL MCH 28.6 (25.7-32.2) pg MCHC 31.6 L (32.3-36.5) g/dL RDW 14.4 (11.6-14.4) % Plt Count 327 (163-337) x10^3/uL MPV 9.3 L (9.4-12.4) fL Gran % 52.1 (34.0-67.9) % Immature Gran % (Auto) 0.6 H (0.001-0.429) % Nucleat RBC Rel Count 0.0 (0.00-0.2) % Eos # (Auto) 0.27 (0.04-0.54) x10^3/uL Immature Gran # (Auto) 0.05 H (0.001-0.031) x10^3u/L Absolute Lymphs (auto) 2.70 (1.32-3.57) x10^3/uL Absolute Monos (auto) 0.63 (0.30-0.82) x10^3/uL Absolute Nucleated RBC 0.00 (0.00-0.012) x10^3u/L Lymphocytes % 35.1 (21.8-53.1) % Monocytes % 8.2 (5.3-12.2) % Eosinophils % 3.5 (0.8-7.0) % Basophils % 0.5 (0.2-1.2) % Absolute Granulocytes 4.01 (1.78-5.38) x10^3/uL Basophils # 0.04 (0.01-0.08) x10^3/uL PT 10.4 (9.4-12.5) SECONDS INR 0.95 (0.8-3.0) APTT 26.8 (25.1-36.5) SECONDS Sodium 143 (135-145) mmol/L Potassium 4.0 (3.5-5.1) mmol/L Chloride 105 (98-107) mmol/L Carbon Dioxide 24 (22-30) mmol/L Anion Gap 17.4 H (5-15) MEQ/L BUN 15 (9-20) mg/dL Creatinine 0.88 (0.66-1.25) mg/dL Estimated GFR 96.6 ML/MIN Glucose 104 (74-106) mg/dL Calcium 9.3 (8.4-10.2) mg/dL Total Bilirubin 0.60 (0.2-1.3) mg/dL AST 27 (17-59) U/L ALT 26 (0-50) U/L Alkaline Phosphatase 67 (38-126) U/L Troponin I (0.000-0.033) ng/mL NT-Pro-B Natriuret Pep (<300) pg/mL Serum Total Protein 7.7 (6.3-8.2) g/dL Albumin 4.4 (3.5-5.0) g/dL 12/01/24 Range/Units 00:03 WBC (4.23-9.07) x10^3/uL RBC (4.63-6.08) x10^6/uL Hgb (13.7-17.5) g/dL Hct (40.1-51.0) % MCV (79.0-92.2) fL MCH (25.7-32.2) pg MCHC (32.3-36.5) g/dL RDW (11.6-14.4) % Plt Count (163-337) x10^3/uL MPV (9.4-12.4) fL Gran % (34.0-67.9) % Immature Gran % (Auto) (0.001-0.429) % Nucleat RBC Rel Count (0.00-0.2) % Eos # (Auto) (0.04-0.54) x10^3/uL Immature Gran # (Auto) (0.001-0.031) x10^3u/L Absolute Lymphs (auto) (1.32-3.57) x10^3/uL Absolute Monos (auto) (0.30-0.82) x10^3/uL Absolute Nucleated RBC (0.00-0.012) x10^3u/L Lymphocytes % (21.8-53.1) % Monocytes % (5.3-12.2) % Eosinophils % (0.8-7.0) % Basophils % (0.2-1.2) % Absolute Granulocytes (1.78-5.38) x10^3/uL Basophils # (0.01-0.08) x10^3/uL PT (9.4-12.5) SECONDS INR (0.8-3.0) APTT (25.1-36.5) SECONDS Sodium (135-145) mmol/L Potassium (3.5-5.1) mmol/L Chloride (98-107) mmol/L Carbon Dioxide (22-30) mmol/L Anion Gap (5-15) MEQ/L BUN (9-20) mg/dL Creatinine (0.66-1.25) mg/dL Estimated GFR ML/MIN Glucose (74-106) mg/dL Calcium (8.4-10.2) mg/dL Total Bilirubin (0.2-1.3) mg/dL AST (17-59) U/L ALT (0-50) U/L Alkaline Phosphatase (38-126) U/L Troponin I < 0.012 (0.000-0.033) ng/mL NT-Pro-B Natriuret Pep 362 (<300) pg/mL Serum Total Protein (6.3-8.2) g/dL Albumin (3.5-5.0) g/dL - Radiology Orders Radiology Orders: Radiology Procedures Category Date Time Status CHEST 1 VIEW (PORTABLE) Stat Exams 12/01/24 23:[address] ANGIOGRAPHY NECK [CT] Stat Exams 12/01/24 23:46 Completed CTA HEAD W AND/OR WO CONTRAST [CT] Stat Exams 12/01/24 23:46 Completed Impressions & Recommendations - ED Arrival Time ED Arrival Date & Time: ED Arrival Date and Time 12/01/24 23:26 Last known well time: - NIHSS IV Thrombolysis Standard of Care: IV thrombolysis as a standard of care in acute stroke discussed with ARIA ADAMS MD. Risk, benefits, and options of IV thrombolytic therapy for acute ischemic stroke were discussed with the patient/family PRINCESS PETERSON. We discussed that use of IV tenecteplase is in line with national stroke guidelines. We discussed that risks of IV thrombolytic use include intracranial hemorrhage, other fatal bleeding risks, and angioedema. Alternatives of treatment, including not proceeding with thrombolytic therapy were discussed. - Recommendations Recommendations: -Neuro checks, NIHSS, vital signs monitoring as per post tenecteplase protocol -Repeat non contrast head CT or noncontrast MRI brain 24 hours after IV thrombolyltic administration. -Obtain STAT non contrast head CT if there are new neurological deficits, worsening of current deficits, or with complaint of severe headache. Notify Neurology HANS of changes in neurological exam. -Nicardipine gtt as needed to maintain BP< 180/105 x 24hr post tenecteplase administration. -Monitor for angioedema -SCD's for DVT prophylaxis. Work up: -Basic labs (CBC, BMP, TSH+T4) if not done already. -INR,PTT if not done already -Fasting Lipid Panel and Hgb A1c -Transthroacic echocardiogram [with bubble study] -EKG + Telemetry- monitor for A-FIB Secondary Stroke Prevention -Hold off on antiplatelet therapy x 24 hr post IV thrombolytic therapy Decision to initiate antiplatelet therapy, or anticoagulation if needed, will be based on repeat imaging at 24 hour post thrombolytic administration. -If not medical contraindication, start high intensity statin. Eg. Atrovastatin 80 mg daily Risk Factor Management -HTN control: BP <180/105 for first 24 hr post tenecteplase -If diabetic, optimize glucose control: group home goal HgA1c <7 -HLD control: Long-term goal LDL <70. High intensity statin recommended. Moderate intensity statin in patients > 75 years. -Smoking Alcohol Use Drug use cessation counseling Stroke Rehabilitation: -Physical therapy, occupational therapy, speech therapy consults -Social work and case management consults for help with discharge needs. Impression and recommendation were discussed with Dr. ARIA ADAMS MD Thank you for allowing us to participate in this patient's care. Please call [facility] with questions, concerns, or change in patient's neurological status. This consult was performed via secure telemedicine audio/visual platform with [ ] RN assisting at bedside. Patient identity verified and consent obtained. TIQ recieved at [ ] Neuro Cart Time: Delays in Patient Encounter: Assessment & Plan - Encounter Encounter: "The entirety of this encounter was performed via Telemedicine using audio and visual "
--- NOTE | 2024-12-02 02:11 | PCM.HP ---
History of Present Illness - Chief Complaint Chief Complaint: numbness/tingling, headache Date: 12/02/24 History of Present Illness: Mr. PETERSON is a 64 year old male with a past medical history significant for hypertension, hyperlipidemia, coronary artery disease status post CABG and R carotid stenosis status post CEA a month ago who presents to the hospital with complaints of L sided numbness and tingling that was similar to previous episodes that lead to the CEA procedure. He was initially markedly hypertensive and complaining of a severe headache. He was given Morphine, which improved his headache symptoms. He has been seen by neurology who is requesting MRI. CTA head/neck demonstrated patent R carotid but has some L carotid stenosis. - Review of Systems All Other Systems: Reviewed and Negative Medications & Allergies Home Medications: Home Medication List Clopidogrel Bisulfate [PLAVIX 75 MG Tablet] 75 mg PO DAILY 09/16/16 [History Confirmed 12/02/24] Nebivolol HCl [Bystolic] 10 mg PO DAILY 08/27/20 [History Confirmed 12/02/24] Atorvastatin Calcium [Lipitor] 80 mg PO DAILY 08/14/24 [History Confirmed 12/02/24] Aspirin EC 81 mg [Ecotrin 81 mg] 81 mg PO DAILY 08/20/24 [History Confirmed 12/02/24] Enalapril Maleate [Vasotec] 10 mg PO DAILY 08/20/24 [History Confirmed 12/02/24] Metformin HCl 500 mg [Glucophage 500 MG] 500 mg PO DAILY 08/20/24 [History Confirmed 12/02/24] Allergies/Adverse Reactions: Allergies Allergy/AdvReac Type Severity Reaction Status Date / Time No Known Drug Allergies Allergy Verified 12/01/24 23:46 - Past Medical History Past Medical History: Yes Neurological History: No Pertinent History ENT History: No Pertinent History Cardiac History: Coronary Artery Disease, High Cholesterol, Hypertension, Myocardial Infarction ([place]) Respiratory History: No Pertinent History Endocrine Medical History: Diabetes Type II Musculoskelatal History: No Pertinent History GI Medical History: No Pertinent History History: No Pertinent History Pyscho-Social History: No Pertinent History Male Reproductive Disorders: No Pertinent History 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 Murcia - Past Surgical History Past Surgical History: Yes Neuro Surgical History: No Pertinent History Cardiac History: CABG, Cardiac Catheterization, Cardiac Stent Respiratory Surgery: No Pertinent History GI Surgical History: No Pertinent History Genitourinary Surgical Hx: No Pertinent History Musculskeletal Surgical Hx: No Pertinent History Other Surgical History: 2013 bypass x 2, carotid surgery to the right side - Social History Smoking Status: Former smoker How long have you smoked: 42 years Exposure to second hand smoke: No Alcohol: None, Occasionally Drug Use: none - Social Determinants of Health Will the patient participate in the screening: Declined to provide Do you worry about a steady place to live?: No In the past 12 months,have you had to go without utilities?: No Have you or anyone in your house had to go without enough: No Transportation Issues: No Has anyone in your support network made you feel unsafe?: No - Physical Exam Vital Signs: Vital Signs - 24 hr Temp Pulse Resp BP BP Pulse Ox 12/02/24 02:02 95 12/02/24 02:01 57 L 25 H 126/73 92 L 12/02/24 01:01 66 24 141/99 94 L 12/02/24 00:30 65 38 H 154/97 92 L 12/02/24 00:16 59 L 23 161/85 95 12/01/24 23:47 97.3 F 59 L 29 H 200/120 97 12/01/24 23:39 61 25 H 200/120 96 General Appearance: no apparent distress Neurologic Exam: alert Ears, Nose, Throat Exam: dry mucous membranes Neck Exam: non-tender, supple Respiratory Exam: No respiratory distress, No accessory muscle use Cardiovascular Exam: regular rate/rhythm Gastrointestinal/Abdomen Exam: soft Extremity Exam: No swelling Skin Exam: normal color, No rash Results - Labs Lab/Micro Results: Lab Results-Last 24 Hours 12/01/24 12/01/24 12/01/24 Range/Units 00:03 00:03 00:03 WBC 7.7 (4.23-9.07) x10^3/uL RBC 4.47 L (4.63-6.08) x10^6/uL Hgb 12.8 L (13.7-17.5) g/dL Hct 40.5 (40.1-51.0) % MCV 90.6 (79.0-92.2) fL MCH 28.6 (25.7-32.2) pg MCHC 31.6 L (32.3-36.5) g/dL RDW 14.4 (11.6-14.4) % Plt Count 327 (163-337) x10^3/uL MPV 9.3 L (9.4-12.4) fL Gran % 52.1 (34.0-67.9) % Immature Gran % (Auto) 0.6 H (0.001-0.429) % Nucleat RBC Rel Count 0.0 (0.00-0.2) % Eos # (Auto) 0.27 (0.04-0.54) x10^3/uL Immature Gran # (Auto) 0.05 H (0.001-0.031) x10^3u/L Absolute Lymphs (auto) 2.70 (1.32-3.57) x10^3/uL Absolute Monos (auto) 0.63 (0.30-0.82) x10^3/uL Absolute Nucleated RBC 0.00 (0.00-0.012) x10^3u/L Lymphocytes % 35.1 (21.8-53.1) % Monocytes % 8.2 (5.3-12.2) % Eosinophils % 3.5 (0.8-7.0) % Basophils % 0.5 (0.2-1.2) % Absolute Granulocytes 4.01 (1.78-5.38) x10^3/uL Basophils # 0.04 (0.01-0.08) x10^3/uL PT 10.4 (9.4-12.5) SECONDS INR 0.95 (0.8-3.0) APTT 26.8 (25.1-36.5) SECONDS Sodium 143 (135-145) mmol/L Potassium 4.0 (3.5-5.1) mmol/L Chloride 105 (98-107) mmol/L Carbon Dioxide 24 (22-30) mmol/L Anion Gap 17.4 H (5-15) MEQ/L BUN 15 (9-20) mg/dL Creatinine 0.88 (0.66-1.25) mg/dL Estimated GFR 96.6 ML/MIN Glucose 104 (74-106) mg/dL Calcium 9.3 (8.4-10.2) mg/dL Total Bilirubin 0.60 (0.2-1.3) mg/dL AST 27 (17-59) U/L ALT 26 (0-50) U/L Alkaline Phosphatase 67 (38-126) U/L Troponin I (0.000-0.033) ng/mL NT-Pro-B Natriuret Pep (<300) pg/mL Serum Total Protein 7.7 (6.3-8.2) g/dL Albumin 4.4 (3.5-5.0) g/dL 12/01/24 Range/Units 00:03 WBC (4.23-9.07) x10^3/uL RBC (4.63-6.08) x10^6/uL Hgb (13.7-17.5) g/dL Hct (40.1-51.0) % MCV (79.0-92.2) fL MCH (25.7-32.2) pg MCHC (32.3-36.5) g/dL RDW (11.6-14.4) % Plt Count (163-337) x10^3/uL MPV (9.4-12.4) fL Gran % (34.0-67.9) % Immature Gran % (Auto) (0.001-0.429) % Nucleat RBC Rel Count (0.00-0.2) % Eos # (Auto) (0.04-0.54) x10^3/uL Immature Gran # (Auto) (0.001-0.031) x10^3u/L Absolute Lymphs (auto) (1.32-3.57) x10^3/uL Absolute Monos (auto) (0.30-0.82) x10^3/uL Absolute Nucleated RBC (0.00-0.012) x10^3u/L Lymphocytes % (21.8-53.1) % Monocytes % (5.3-12.2) % Eosinophils % (0.8-7.0) % Basophils % (0.2-1.2) % Absolute Granulocytes (1.78-5.38) x10^3/uL Basophils # (0.01-0.08) x10^3/uL PT (9.4-12.5) SECONDS INR (0.8-3.0) APTT (25.1-36.5) SECONDS Sodium (135-145) mmol/L Potassium (3.5-5.1) mmol/L Chloride (98-107) mmol/L Carbon Dioxide (22-30) mmol/L Anion Gap (5-15) MEQ/L BUN (9-20) mg/dL Creatinine (0.66-1.25) mg/dL Estimated GFR ML/MIN Glucose (74-106) mg/dL Calcium (8.4-10.2) mg/dL Total Bilirubin (0.2-1.3) mg/dL AST (17-59) U/L ALT (0-50) U/L Alkaline Phosphatase (38-126) U/L Troponin I < 0.012 (0.000-0.033) ng/mL NT-Pro-B Natriuret Pep 362 (<300) pg/mL Serum Total Protein (6.3-8.2) g/dL Albumin (3.5-5.0) g/dL - Radiology Impressions Radiology Exams & Impressions: Radiology Procedures Category Date Time Status CHEST 1 VIEW (PORTABLE) Stat Exams 12/01/24 23:[address] ANGIOGRAPHY NECK [CT] Stat Exams 12/01/24 23:46 Completed CTA HEAD W AND/OR WO CONTRAST [CT] Stat Exams 12/01/24 23:46 Completed Assessment/Plan (1) Facial paresthesia Current Visit: Yes Status: Acute Assessment & Plan: Concerning for CVA with previous symptoms associated with carotid stenosis in the past 1. Admit to the hospital 2. MRI brain 3. Plans per neuro 4. ASA/Plavix 5. PT eval 6. Check lipids Code(s): R20.2 - PARESTHESIA OF SKIN (2) Hypertension Current Visit: No Status: Acute Qualifiers: Hypertension type: primary hypertension Qualified Code(s): I10 - Essential (primary) hypertension Assessment & Plan: Blood pressure markedly elevated, improved with morphine 1. Continue bp meds 2. Telemetry 3. Low Na diet 4. Monitor blood pressure readings Code(s): I10 - ESSENTIAL (PRIMARY) HYPERTENSION (3) Carotid stenosis Current Visit: Yes Status: Acute Qualifiers: Laterality: bilateral Qualified Code(s): I65.23 - Occlusion and stenosis of bilateral carotid arteries Assessment & Plan: Status post recent R CEA and known L carotid stenosis, plans for surgery in the next few weeks Code(s): I65.29 - OCCLUSION AND STENOSIS OF UNSPECIFIED CAROTID ARTERY Telemedicine Encounter - Telemedicine Encounter Telemedicine Encounter: "The entirety of this encounter was performed via Telemedicine" This visit was performed using real-time audio and video connection between my location and thepatients locationwith the assistance of a surrogateat the patients location. Written or verbal consent was obtained from the patient/guardian to perform this visit usingsynchronoustelemedicine technology. Any patient questions regarding the telemedicine interaction were answered.
[2024-12-02] MEDS ORDERED: HUMALOG SQ PRN (03:51)
[2024-12-02] MEDS ORDERED: Zofran 4 MG/2 ML VIAL IV PRN (03:51)
[2024-12-02] MEDS ORDERED: TYLENOL 325 MG PO PRN (03:51)
[2024-12-02] MEDS: Sodium Chloride 0.9% 1000 ML 1,000 ML IV SCH (04:21)
[2024-12-02 04:46] LABS: ALBUMIN 3.9 g/dL (3.5-5.0); ANION GAP 13.9 MEQ/L (5-15); BILIRUBIN,TOTAL 0.6 mg/dL (0.2-1.3); Calcium 8.8 mg/dL (8.4-10.2); Creatinine 1 0.86 mg/dL (0.66-1.25); EST GLOMERULAR FILTRATION RATE 97.3 ML/MIN; Potassium 4.2 mmol/L (3.5-5.1); Total Protein 7.1 g/dL (6.3-8.2)
[2024-12-02 07:51] LABS: Absolute Neutrophil Ct (ANC) 4.74 x10^3/uL (1.78-5.38); BASOPHIL % 0.5 % (0.2-1.2); Basophil (Absolute #) 0.04 x10^3/uL (0.01-0.08); Eosinophil (Absolute #) 0.24 x10^3/uL (0.04-0.54); Hematocrit 37.8 % (40.1-51.0); Hemoglobin 12.1 g/dL (13.7-17.5); IMMATURE GRAN # 0.03 x10^3u/L (0.001-0.031); IMMATURE GRAN % 0.4 % (0.001-0.429); Lymphocyte (Absolute #) 2.33 x10^3/uL (1.32-3.57); Lymphocytes % 29.4 % (21.8-53.1); Mean Cell Volume 92.4 fL (79.0-92.2); Mean Corpuscular Hemoglobin 29.6 pg (25.7-32.2); Mean Platelet Volume 9.6 fL (9.4-12.4); Monocyte (Absolute #) 0.54 x10^3/uL (0.30-0.82); Monocytes % 6.8 % (5.3-12.2); Neutrophil % 59.9 % (34.0-67.9); Platelet Count 331 x10^3/uL (163-337); Red Blood Count 4.09 x10^6/uL (4.63-6.08); Red Cell Distribution Width 14.5 % (11.6-14.4); White Blood Count 7.9 x10^3/uL (4.23-9.07)
--- NOTE | 2024-12-02 08:43 | XRAY ---
Indication: Chest pain. Comparison: September 13, 2024 Portable apical lordotic chest again demonstrates chronic right hemidiaphragm elevation with adjacent subsegmental atelectasis/scarring. Remaining lungs clear. Heart not enlarged again with CABG. Bony thorax intact again with mild degenerative changes. Impression: Continued nonacute chest with chronic features.
[2024-12-02] MEDS: PLAVIX Tablet PO SCH (09:07)
[2024-12-02] MEDS: Protonix 40MG Tablet PO SCH (09:07)
[2024-12-02] MEDS: Zestril 20 MG PO SCH (09:07)
[2024-12-02] MEDS: Bystolic 5 MG PO SCH (09:08)
[2024-12-02] MEDS: LIPITOR 40MG PO SCH (09:08)
[2024-12-02] MEDS: ECOTRIN 81 MG PO SCH (09:08)
[2024-12-02] MEDS ORDERED: ENOXAPARIN SODIUM SQ SCH (10:00)
--- NOTE | 2024-12-02 12:38 | XRAY ---
Indication: Paresthesia. Sagittal, coronal, and axial MRI brain performed using pre and post T1, T2, FLAIR, diffusion, and ADC sequences. 20 cc Dotarem contrast used. Comparison: None Age-appropriate global atrophy and a few periventricular degenerative micro-ischemia signal. No acute intracranial hemorrhage, abnormal extra-axial fluid collection, or mass effect. Diffusion images are negative for restricted signal. Following gadolinium, there is no abnormal intra or extra-axial enhancement. Fourth ventricle is midline without hydrocephalus. 7/8 cranial nerve complex bilaterally symmetric. Normal flow-void signal within the major intracerebral circulation. Normal appearing craniocervical junction and sella turcica. Mild mucosal thickening left sphenoid sinus and 2.3 cm left maxillary polyp/retention cyst. Remaining paranasal sinuses are clear. Impression: 1. Atrophy and degenerative micro-ischemia within normal limits. 2. Incidental left sphenoid sinus disease and left maxillary polyp/retention cyst. 3. Remaining MRI brain with contrast exam is negative.
[2024-12-02 12:56] VITALS: BP 124/67; PULSE 66; RESP 22; TEMP 97.9; O2SAT 95
--- NOTE | 2024-12-02 14:04 | PCM.DS ---
Discharge Summary Date of Admission: 12/02/24 02:57 Date of Discharge: 12/02/24 Admitting Physician: HERBERT PERDUE MD Primary Care Provider: VICTORINO FRAGA Allergies Allergies No Known Drug Allergies Allergy (Verified 12/01/24 23:46) Hospital Summary - Hospital Course Hospital Course: Mr. Schulte is a 64 year old male with a pmhx of hypertension, hyperlipidemia, coronary artery disease status post-CABG, and right carotid stenosis status post-CEA one month ago was admitted for evaluation of left-sided numbness and tingling, similar to prior symptoms leading to his CEA. On admission, he was markedly hypertensive with a severe headache, which improved with morphine. Neurology evaluated him, and MRI showed no acute infarct but confirmed chronic right occipital infarction and age-related microvascular changes. CTA revealed stable right carotid patency with persistent left carotid stenosis, for which he is scheduled for CEA on 12/10/24. Incidental sinus findings were noted and advised follow up with his PCP. His hypertension improved with medical management. He was discharged on his home dual antiplatelet therapy with recommendations for neurology and cardiology follow-up. I spent 35 minutes [id number] with the patient on the day of discharge performing discharge exam, discussing hospital stay and discharge instructions with patient and caregivers, preparation of discharge records, prescriptions & referral forms and addressing any questions/concerns the patient had as documented above. - Vitals & Intake/Output Vital Signs: Vital Signs Temperature 97.9 F 12/02/24 12:00 Pulse Rate 66 12/02/24 12:00 Respiratory Rate 22 12/02/24 12:00 Blood Pressure 124/67 12/02/24 12:00 O2 Sat by Pulse Oximetry 95 12/02/24 12:00 Intake & Output: Intake & Output 11/30/24 12/01/24 12/02/24 12/03/24 11:59 11:59 11:59 11:59 Intake Total 240 Balance 240 Weight 104.1 kg - Lab Result Diagrams: 12/02/24 00:30 12/02/24 04:26 Lab Results-Last 24 Hrs: Lab Results-Last 24 Hours 12/01/24 12/01/24 12/01/24 Range/Units 00:03 00:03 00:03 WBC 7.7 (4.23-9.07) x10^3/uL RBC 4.47 L (4.63-6.08) x10^6/uL Hgb 12.8 L (13.7-17.5) g/dL Hct 40.5 (40.1-51.0) % MCV 90.6 (79.0-92.2) fL MCH 28.6 (25.7-32.2) pg MCHC 31.6 L (32.3-36.5) g/dL RDW 14.4 (11.6-14.4) % Plt Count 327 (163-337) x10^3/uL MPV 9.3 L (9.4-12.4) fL Gran % 52.1 (34.0-67.9) % Immature Gran % (Auto) 0.6 H (0.001-0.429) % Nucleat RBC Rel Count 0.0 (0.00-0.2) % Eos # (Auto) 0.27 (0.04-0.54) x10^3/uL Immature Gran # (Auto) 0.05 H (0.001-0.031) x10^3u/L Absolute Lymphs (auto) 2.70 (1.32-3.57) x10^3/uL Absolute Monos (auto) 0.63 (0.30-0.82) x10^3/uL Absolute Nucleated RBC 0.00 (0.00-0.012) x10^3u/L Lymphocytes % 35.1 (21.8-53.1) % Monocytes % 8.2 (5.3-12.2) % Eosinophils % 3.5 (0.8-7.0) % Basophils % 0.5 (0.2-1.2) % Absolute Granulocytes 4.01 (1.78-5.38) x10^3/uL Basophils # 0.04 (0.01-0.08) x10^3/uL ESR (0-15) mm/hr PT 10.4 (9.4-12.5) SECONDS INR 0.95 (0.8-3.0) APTT 26.8 (25.1-36.5) SECONDS Sodium 143 (135-145) mmol/L Potassium 4.0 (3.5-5.1) mmol/L Chloride 105 (98-107) mmol/L Carbon Dioxide 24 (22-30) mmol/L Anion Gap 17.4 H (5-15) MEQ/L BUN 15 (9-20) mg/dL Creatinine 0.88 (0.66-1.25) mg/dL Estimated GFR 96.6 ML/MIN Glucose 104 (74-106) mg/dL POC Glucometer (74 to 106) mg/dL Calcium 9.3 (8.4-10.2) mg/dL Total Bilirubin 0.60 (0.2-1.3) mg/dL AST 27 (17-59) U/L ALT 26 (0-50) U/L Alkaline Phosphatase 67 (38-126) U/L Troponin I (0.000-0.033) ng/mL NT-Pro-B Natriuret Pep (<300) pg/mL Serum Total Protein 7.7 (6.3-8.2) g/dL Albumin 4.4 (3.5-5.0) g/dL 12/01/24 12/02/24 12/02/24 Range/Units 00:03 00:30 00:30 WBC 7.9 (4.23-9.07) x10^3/uL RBC 4.09 L (4.63-6.08) x10^6/uL Hgb 12.1 L (13.7-17.5) g/dL Hct 37.8 L (40.1-51.0) % MCV 92.4 H (79.0-92.2) fL MCH 29.6 (25.7-32.2) pg MCHC 32.0 L (32.3-36.5) g/dL RDW 14.5 H (11.6-14.4) % Plt Count 331 (163-337) x10^3/uL MPV 9.6 (9.4-12.4) fL Gran % 59.9 (34.0-67.9) % Immature Gran % (Auto) 0.4 (0.001-0.429) % Nucleat RBC Rel Count 0.0 (0.00-0.2) % Eos # (Auto) 0.24 (0.04-0.54) x10^3/uL Immature Gran # (Auto) 0.03 (0.001-0.031) x10^3u/L Absolute Lymphs (auto) 2.33 (1.32-3.57) x10^3/uL Absolute Monos (auto) 0.54 (0.30-0.82) x10^3/uL Absolute Nucleated RBC 0.00 (0.00-0.012) x10^3u/L Lymphocytes % 29.4 (21.8-53.1) % Monocytes % 6.8 (5.3-12.2) % Eosinophils % 3.0 (0.8-7.0) % Basophils % 0.5 (0.2-1.2) % Absolute Granulocytes 4.74 (1.78-5.38) x10^3/uL Basophils # 0.04 (0.01-0.08) x10^3/uL ESR 39 H (0-15) mm/hr PT (9.4-12.5) SECONDS INR (0.8-3.0) APTT (25.1-36.5) SECONDS Sodium (135-145) mmol/L Potassium (3.5-5.1) mmol/L Chloride (98-107) mmol/L Carbon Dioxide (22-30) mmol/L Anion Gap (5-15) MEQ/L BUN (9-20) mg/dL Creatinine (0.66-1.25) mg/dL Estimated GFR ML/MIN Glucose (74-106) mg/dL POC Glucometer (74 to 106) mg/dL Calcium (8.4-10.2) mg/dL Total Bilirubin (0.2-1.3) mg/dL AST (17-59) U/L ALT (0-50) U/L Alkaline Phosphatase (38-126) U/L Troponin I < 0.012 (0.000-0.033) ng/mL NT-Pro-B Natriuret Pep 362 (<300) pg/mL Serum Total Protein (6.3-8.2) g/dL Albumin (3.5-5.0) g/dL 12/02/24 12/02/24 12/02/24 Range/Units 04:26 04:26 06:51 WBC (4.23-9.07) x10^3/uL RBC (4.63-6.08) x10^6/uL Hgb (13.7-17.5) g/dL Hct (40.1-51.0) % MCV (79.0-92.2) fL MCH (25.7-32.2) pg MCHC (32.3-36.5) g/dL RDW (11.6-14.4) % Plt Count (163-337) x10^3/uL MPV (9.4-12.4) fL Gran % (34.0-67.9) % Immature Gran % (Auto) (0.001-0.429) % Nucleat RBC Rel Count (0.00-0.2) % Eos # (Auto) (0.04-0.54) x10^3/uL Immature Gran # (Auto) (0.001-0.031) x10^3u/L Absolute Lymphs (auto) (1.32-3.57) x10^3/uL Absolute Monos (auto) (0.30-0.82) x10^3/uL Absolute Nucleated RBC (0.00-0.012) x10^3u/L Lymphocytes % (21.8-53.1) % Monocytes % (5.3-12.2) % Eosinophils % (0.8-7.0) % Basophils % (0.2-1.2) % Absolute Granulocytes (1.78-5.38) x10^3/uL Basophils # (0.01-0.08) x10^3/uL ESR (0-15) mm/hr PT (9.4-12.5) SECONDS INR (0.8-3.0) APTT (25.1-36.5) SECONDS Sodium 142 (135-145) mmol/L Potassium 4.2 (3.5-5.1) mmol/L Chloride 106 (98-107) mmol/L Carbon Dioxide 26 (22-30) mmol/L Anion Gap 13.9 (5-15) MEQ/L BUN 12 (9-20) mg/dL Creatinine 0.86 (0.66-1.25) mg/dL Estimated GFR 97.3 ML/MIN Glucose 115 H (74-106) mg/dL POC Glucometer 97 (74 to 106) mg/dL Calcium 8.8 (8.4-10.2) mg/dL Total Bilirubin 0.60 (0.2-1.3) mg/dL AST 24 (17-59) U/L ALT 24 (0-50) U/L Alkaline Phosphatase 63 (38-126) U/L Troponin I < 0.012 (0.000-0.033) ng/mL NT-Pro-B Natriuret Pep (<300) pg/mL Serum Total Protein 7.1 (6.3-8.2) g/dL Albumin 3.9 (3.5-5.0) g/dL 12/02/24 12/02/24 Range/Units 08:04 11:41 WBC (4.23-9.07) x10^3/uL RBC (4.63-6.08) x10^6/uL Hgb (13.7-17.5) g/dL Hct (40.1-51.0) % MCV (79.0-92.2) fL MCH (25.7-32.2) pg MCHC (32.3-36.5) g/dL RDW (11.6-14.4) % Plt Count (163-337) x10^3/uL MPV (9.4-12.4) fL Gran % (34.0-67.9) % Immature Gran % (Auto) (0.001-0.429) % Nucleat RBC Rel Count (0.00-0.2) % Eos # (Auto) (0.04-0.54) x10^3/uL Immature Gran # (Auto) (0.001-0.031) x10^3u/L Absolute Lymphs (auto) (1.32-3.57) x10^3/uL Absolute Monos (auto) (0.30-0.82) x10^3/uL Absolute Nucleated RBC (0.00-0.012) x10^3u/L Lymphocytes % (21.8-53.1) % Monocytes % (5.3-12.2) % Eosinophils % (0.8-7.0) % Basophils % (0.2-1.2) % Absolute Granulocytes (1.78-5.38) x10^3/uL Basophils # (0.01-0.08) x10^3/uL ESR (0-15) mm/hr PT (9.4-12.5) SECONDS INR (0.8-3.0) APTT (25.1-36.5) SECONDS Sodium (135-145) mmol/L Potassium (3.5-5.1) mmol/L Chloride (98-107) mmol/L Carbon Dioxide (22-30) mmol/L Anion Gap (5-15) MEQ/L BUN (9-20) mg/dL Creatinine (0.66-1.25) mg/dL Estimated GFR ML/MIN Glucose (74-106) mg/dL POC Glucometer 105 (74 to 106) mg/dL Calcium (8.4-10.2) mg/dL Total Bilirubin (0.2-1.3) mg/dL AST (17-59) U/L ALT (0-50) U/L Alkaline Phosphatase (38-126) U/L Troponin I < 0.012 (0.000-0.033) ng/mL NT-Pro-B Natriuret Pep (<300) pg/mL Serum Total Protein (6.3-8.2) g/dL Albumin (3.5-5.0) g/dL Micro Results-Entire Visit: Accuchecks Date 12/02/24 Date 12/02/24 - Radiology Exams Ordered Rad Exams-Entire Visit: Radiology Procedures Category Date Time Status CHEST 1 VIEW (PORTABLE) Stat Exams 12/01/24 23:[address] ANGIOGRAPHY NECK [CT] Stat Exams 12/01/24 23:46 Completed CTA HEAD W AND/OR WO CONTRAST [CT] Stat Exams 12/01/24 23:46 Completed MRI BRAIN W & W/O CONTRAST [MRI] Routine Exams 12/02/24 08:00 Completed - Procedures and Test Procedures and Tests throughout Hospitalization: Therapy Orders & Screens 12/02/24 03:01 Respiratory Therapy Consult ONCE Comment: Reason For Exam: Discharge Exam General Appearance: no apparent distress Neurologic Exam: alert, oriented x 3, cooperative Eye Exam: PERRL Ears, Nose, Throat Exam: normal ENT inspection Neck Exam: normal inspection Respiratory Exam: normal breath sounds, lungs clear Cardiovascular Exam: regular rate/rhythm, normal heart sounds Gastrointestinal/Abdomen Exam: soft, normal bowel sounds Male Genitalia Exam: deferred Rectal Exam: deferred Back Exam: normal inspection Extremity Exam: normal inspection Skin Exam: normal color Final Diagnosis/Problem List - Final Discharge Diagnosis/Problem (1) Facial paresthesia Current Visit: Yes Status: Acute Code(s): R20.2 - PARESTHESIA OF SKIN (2) History of migraine Current Visit: Yes Status: Chronic Code(s): Z86.69 - PERSONAL HISTORY OF DIS OF THE NERVOUS SYS AND SENSE ORGANS (3) HLD (hyperlipidemia) Current Visit: Yes Status: Chronic Code(s): E78.5 - HYPERLIPIDEMIA, UNSPECIFIED (4) CAD (coronary artery disease) Current Visit: Yes Status: Chronic Code(s): I25.10 - ATHSCL HEART DISEASE OF [place] CORONARY ARTERY W/O ANG PCTRS (5) Carotid stenosis Current Visit: Yes Status: Chronic Code(s): I65.29 - OCCLUSION AND STENOSIS OF UNSPECIFIED CAROTID ARTERY (6) Migraine Current Visit: Yes Status: Chronic Code(s): G43.909 - MIGRAINE, UNSP, NOT INTRACTABLE, WITHOUT STATUS MIGRAINOSUS (7) Hypertension Current Visit: No Status: Chronic Code(s): I10 - ESSENTIAL (PRIMARY) HYPERTENSION - Discharge Discharge Date: 12/02/24 Disposition: Home, Self-Care Condition: Stable Prescriptions: Continue Clopidogrel Bisulfate [PLAVIX Tablet] 75 mg PO DAILY Nebivolol HCl [Bystolic] 10 mg PO DAILY Atorvastatin Calcium [Lipitor] 80 mg PO DAILY Enalapril Maleate [Vasotec] 10 mg PO DAILY Aspirin EC 81 mg [Ecotrin 81 mg] 81 mg PO DAILY Metformin HCl 500 mg [Glucophage 500 MG] 500 mg PO DAILY Follow up with: VICTORINO FRAGA MD [Primary Care Provider] - 12/07/24 2:30 pm ([facility])
== END 2024-12-02 15:12 | disposition home or self-care (01) ==
LOC: ED 23:26 → MED SURG 12-02 02:57
PROVIDERS: ADMIT Internal Medicine Nephrology; ATTEND Internal Medicine Nephrology
DX: R20.2 Paresthesia of skin (principal); E78.5 Hyperlipidemia, unspecified; I25.10 Atherosclerotic heart disease of native coronary artery without angina pectoris; G43.909 Migraine, unspecified, not intractable, without status migrainosus; I10 Essential (primary) hypertension; I25.2 Old myocardial infarction; E11.9 Type 2 diabetes mellitus without complications; I65.23 Occlusion and stenosis of bilateral carotid arteries; Z79.899 Other long term (current) drug therapy; Z86.69 Personal history of other diseases of the nervous system and sense organs; Z95.0 Presence of cardiac pacemaker; Z79.01 Long term (current) use of anticoagulants
CPT/HCPCS: 36415; 70496; 70498; 70553; 71045; 80053; 82947; 83880; 84484; 85025; 85610; 85652; 85730; 93005; 93041; 96374; 99291; Q3014; 99285; J2270; J2405; A9270-GY